=== PATIENT | male | born 1960 | race Two or more races ===

== ENCOUNTER 2019-05-17 05:38 | Emergency (ER) | payer BC ==
[~2019-05-17] VITALS: Ht 170.2 cm; Wt 99.3 kg
[2019-05-17 05:50] VITALS: BP 132/86
--- NOTE | 2019-05-17 05:50 | NUR ---
ED Nurse Note: Patient brought in by ambulance from home d/t inability to urinate, per patient started this morning but has been an ongoing problem. Patient aao x 4 and ambulatory. Patient currently takes Flomax 0.4mg BID. Patient states he has a hx of enlarged prostate and TURP. Patient placed in gown. Patient was able to provide a small sample of urine. No acute distress noted.
--- NOTE | 2019-05-17 05:55 | Emergency Room Report ---
History of Present Illness General Chief Complaint: Male Urogenital Problems Source: Patient (Moisés Ortega MD) Present Illness HPI This is a 59-year-old male with a history of BPH. He is already on Flomax twice a day. He presents with chief complaint of urinary retention. Onset around 5 PM. Very little urination and now very severe pain. Similar symptom in the past. He had to had a dilatation because of severe obstruction a few months ago. He said he had prostate procedure to help him urinate. He had a cough and congestion for the last few days and was taking Phenergan with codeine. It was not working so he stopped it yesterday. He was placed on inhaler instead. It is 10 out of 10. Worse with urge to urinate. (Moisés Ortega MD) Allergies: Coded Allergies: No Known Allergies (Unverified , 05/17/19) Patient History Past Medical History: see triage record, old chart reviewed Past Surgical History: other Pertinent Family History: none Social History: Denies: smoking Immunizations: other Reviewed Nursing Documentation: PMH: Agreed; PSxH: Agreed (Moisés Ortega MD) Nursing Documentation-PMH Hx Hypertension: Yes (Moisés Ortega MD) Review of Systems Eye: Denies: eye pain, blurred vision ENT: Denies: ear pain, nose congestion, throat swelling Respiratory: Denies: cough, shortness of breath Cardiovascular: Denies: chest pain, palpitations Gastrointestinal: Denies: abdominal pain, diarrhea, nausea, vomiting Genitourinary: Reports: pain, retention Musculoskeletal: Denies: back pain, joint pain Skin: Denies: rash Neurological: Denies: headache, numbness Endocrine: Denies: increased thirst, increased urine Hematologic/Lymphatic: Denies: easy bruising All Other Systems: negative except mentioned in HPI (Moisés Ortega MD) Physical Exam Vital Signs Date Time Temp Pulse Resp B/P (MAP) Pulse Ox O2 Delivery O2 Flow Rate FiO2 05/17/19 05:42 97.5 90 160/100 (120) 18 Room Air Vitals with high blood pressure Sp02 EP Interpretation: reviewed, normal General Appearance: well appearing, no apparent distress, alert Head: normocephalic, atraumatic Eyes: bilateral eye PERRL, bilateral eye EOMI ENT: hearing grossly normal, normal pharynx Neck: full range of motion, supple, no meningismus Respiratory: chest non-tender, lungs clear, normal breath sounds Cardiovascular #1: regular rate, rhythm, no murmur Gastrointestinal: normal bowel sounds, non tender, no mass, no organomegaly, no bruit, non-distended, other - Distended bladder Musculoskeletal: back normal, normal range of motion, gait/station normal Psychiatric: mood/affect normal (Moisés Ortega MD) Medical Decision Making Diagnostic Impression: Primary Impression: Acute urinary retention Additional Impressions: Urethral stricture Qualified Codes: N35.911 - Unspecified urethral stricture, male, meatal UTI (urinary tract infection) Qualified Codes: N30.00 - Acute cystitis without hematuria ER Course Patient with acute urinary retention. Nursing staff unable to pass the Britt. I tried and he has severe almost pleat occlusion of the urethra at the meatus. He says is the same problem he had at [facility] last year. He had to be dilated and a catheter placed. He was able to urinate a small amount here. Urine may show small amount of infection. We will put him on antibiotics. I paged the urologist houseperson Dr. Tomlinson to evaluate the patient. (Moisés Ortega MD) ER Course Patient endorsed to me by Dr. Ortega with history of urinary retention after urethral stricture. See Dr. Ortega's note for full HPI. patient was seen by Dr. Tomlinson who placed a Britt catheter. Patient was given pain medications. Dr. Tomlinson agreed to have the patient seen in follow-up. At the time of discharge patient was awake alert oriented x3. He was ambulatory without assistance. Patient is given prescription for oral antibiotics and advised to follow-up with Dr. Tomlinson for recheck. Patient is advised to return if any worsening condition or if any changes in status that are concerning. This report is dictated with [employer] tug hand software which may occasionally lead to discrepancies related to use of this software. Labs Test 05/17/19 05:50 Urine Color Pale yellow Urine Appearance Clear Urine pH 6 (4.5-8.0) Urine Specific [place] 1.015 (1.005-1.035) Urine Protein 2+ (NEGATIVE) Urine Glucose (UA) Negative (NEGATIVE) Urine Ketones Negative (NEGATIVE) Urine Blood 4+ (NEGATIVE) Urine Nitrite Negative (NEGATIVE) Urine Bilirubin Negative (NEGATIVE) Urine Urobilinogen Normal MG/DL (0.0-1.0) Urine Leukocyte Esterase 2+ (NEGATIVE) Urine RBC 40-60 /HPF (0 - 0) Urine WBC 10-15 /HPF (0 - 0) Urine Squamous Epithelial Cells None /LPF (NONE/OCC) Urine Bacteria Few /HPF (NONE) (Miguel Bergeron MD) Last Vital Signs Date Time Temp Pulse Resp B/P (MAP) Pulse Ox O2 Delivery O2 Flow Rate FiO2 05/17/19 05:42 97.5 90 160/100 (120) 18 Room Air Status: improved (Moisés Ortega MD) Status: improved (Miguel Bergeron MD) Disposition: HOME, SELF-CARE Condition: Stable Scripts Hydrocodone Bit/Acetaminophen 5-325* (NORCO 5-325*) 1 Each Tablet 1 TAB ORAL Q6H PRN for For Pain, #10 TAB 0 Refills Prov: Miguel Bergeron MD 05/17/19 Cephalexin* (KEFLEX*) 500 Mg Capsule 500 MG ORAL EVERY 6 HOURS, #28 CAP Prov: Miguel Bergeron MD 05/17/19 Moisés Ortega MD May 17, 2019 05:55 Miguel Bergeron MD May 17, 2019 07:20
[2019-05-17 05:58] LABS: APPEARANCE,URINE CLEAR; BILIRUBIN, URINE NEGATIVE (NEGATIVE); COLOR,URINE PALE YELLOW; GLUCOSE, URINE (UA) NEGATIVE (NEGATIVE); KETONES,URINE NEGATIVE (NEGATIVE); NITRITE,URINE NEGATIVE (NEGATIVE); PH,URINE 6 (4.5-8.0); PROTEIN,URINE 2+ (NEGATIVE); UROBILINOGEN,URINE NORMAL MG/DL (0.0-1.0)
--- NOTE | 2019-05-17 06:00 | NUR ---
ED Nurse Note: Attempted to insert coude 16F urinary cath per ERMD order, unable to advance through urethral opening. ERMD aware.
[2019-05-17 06:06] LABS: LEUKOCYTE ESTERASE ,URINE 2+ (NEGATIVE)
[2019-05-17] MEDS ORDERED: cefTRIAXone 1 GM in NS 55 ML IVPB ONE (06:30)
[2019-05-17] MEDS ORDERED: LORazepam Inj 2mg/ml 1ml IV ONE (06:30)
[2019-05-17] MEDS ORDERED: Morphine Sulfate 2mg/ml Inj(IV/IM USE ONLY) IVP ONE ×2 (07:00→07:15)
--- NOTE | 2019-05-17 07:07 | NUR ---
ED Nurse Note: Urologist and ERMD at bedside.
--- NOTE | 2019-05-17 07:21 | NUR ---
HAND-OFF: Report given to ED Lu.
[2019-05-17] MEDS ORDERED: CEPHALEXIN500 MG ORAL (07:22)
[2019-05-17] MEDS ORDERED: NORCO 5-325 TA1 EACH ORAL (07:23)
[2019-05-17 07:24] VITALS: BP 127/81
[2019-05-17 07:49] VITALS: BP 140/82
--- NOTE | 2019-05-17 07:50 | NUR ---
ER DISCHARGE NOTE: Patient is cleared to be discharged per ERMD, pt is aox4, on room air, with stable vital signs. pt was given dc and prescription instructions, pt was able to verbalize understanding, pt id band and iv site removed without complications. pt is able to ambulate with steady gait. pt took all belongings.
--- NOTE | 2019-05-17 18:45 | Consultation ---
DATE OF CONSULTATION: 05/17/2019 REASON FOR CONSULTATION: 1. Acute urinary retention. 2. Meatal stenosis. HISTORY OF PRESENT ILLNESS: The patient is a very pleasant gentleman who had recently TURP and had two episodes of urinary retention with urethral meatal stricture, came to the emergency room with suprapubic distention, pain, and inability to void. PAST MEDICAL HISTORY: Significant for previous TURPs. REVIEW OF SYMPTOMS: The patient is extremely uncomfortable in bed with distended bladder and inability to void. PHYSICAL EXAMINATION: VITAL SIGNS: He is afebrile. Vital signs are stable. NEUROLOGICAL: Neurologically intact LUNGS: Clear to auscultation. CARDIOVASCULAR: Regular rate and rhythm. ABDOMEN: Soft, but distended with severe suprapubic tenderness. GENITOURINARY: Scrotal exam and penile exam is normal. PROCEDURE: Urethra was evaluated. He has severe meatal stenosis. Using Momo sounds, urethra was dilated to 20-Maldivian and a 16-Maldivian coude Britt catheter was placed. Approximately liter of urine was expressed, clear yellow. No evidence of hematuria. Britt was left indwelling. The patient was given recommendations to see me in the office for further management or to see his urologist on records to address the issue of meatal stricture and to give him treatment in followup to prevent retention. I also recommended sent him home with a Britt catheter due to severe structural dilation. Tutu Tomlinson M.D. DR: Nisha JOB#: [id number] CC:
== END 2019-05-17 07:50 | disposition home or self-care (01) ==
LOC: EDBD 05:38 → EMR 06:23
DX: R33.9 Retention of urine, unspecified (principal); N35.911 Unspecified urethral stricture, male, meatal; N30.00 Acute cystitis without hematuria; I10 Essential (primary) hypertension; N35.919 Unspecified urethral stricture, male, unspecified site
CPT/HCPCS: 51702; 81003; 87086; 96365; 96375; 99284; J0696; J2270

== ENCOUNTER 2019-09-19 08:26 | Inpatient (IN) | payer BC ==
[2019-09-19] VITALS (15 sets, daily range): BP systolic 101–144; BP diastolic 61–90
[~2019-09-19] VITALS: Ht 172.7 cm; Wt 100.7 kg
[~2019-09-19 08:26] MED LIST: CEPHALEXIN500 MG ORAL; NORCO 5-325 TA1 EACH ORAL; ceFAZolin sod 1 GM in NS 55 ML IVPB ONE
[2019-09-19] MEDS ORDERED: LR 1000ml 1,000 ML IVLG SCH (08:58)
--- NOTE | 2019-09-19 08:59 | Anethesia Preoperative Eval ---
Anesthesia Pre-op PMH/ROS General Date of Evaluation: Sep 19, 2019 Time of Evaluation: 09:17 Anesthesiologist: Alejandro ASA Score: ASA 3 Mallampati Score Class I : Soft palate, uvula, fauces, pillars visible Class II: Soft palate, uvula, fauces visible Class III: Soft palate, base of uvula visible Class IV: Only hard plate visible Mallampati Classification: Class III Surgeon: Davi Diagnosis: Abd Pain Surgical Procedure: Prostatectomy Anesthesia History: none Family History: no anesthesia problems Allergies: Coded Allergies: No Known Allergies (Unverified , 09/17/19) Medications: see eMAR Patient NPO?: Yes Past Medical History Cardiovascular: Reports: HTN Hematology/Immune: Reports: other - Prostate Other: obesity - BMI 36 Anesthesia Pre-op Phys. Exam Physician Exam BP 157/99, p58, 02=99 Constitutional: NAD Neurologic: CN 2-12 intact Cardiovascular: RRR Respiratory: CTA Gastrointestinal: S/NT/ND Airway Exam Mallampati Score: Class III MO: limited ROM: limited Teeth: missing, intact Anesthesia Pre-op A/P Risk Assessment & Plan Assessment: ASA 3 Plan: GA, SED, GlideScope Status Change Before Surgery: No Pre-Antibiotics Dru Grams Ancef IV Given Within 1 Hr of Incision: Yes Time Given: 09:31 Flash Allen MD Sep 19, 2019 08:59
[2019-09-19] MEDS ORDERED: LR 1000ml ONE (09:00)
[2019-09-19] MEDS ORDERED: DiphenhydrAMINE 50mg/ml Inj IVP PRN (09:00)
[2019-09-19] MEDS ORDERED: Atropine Sulfate 0.4mg/ml inj IVP PRN (09:00)
[2019-09-19] MEDS ORDERED: LORazepam Inj 2mg/ml 1ml IV PRN (09:00)
[2019-09-19] MEDS ORDERED: Midazolam 2mg/2ml Inj IVP PRN (09:00)
[2019-09-19] MEDS ORDERED: oxyCODONE HCL/Acetaminophen 5/325mg ORAL PRN (09:00)
[2019-09-19] MEDS ORDERED: Metoclopramide 10mg/2ml Inj IVP PRN (09:00)
[2019-09-19] MEDS ORDERED: HYDROcodone/Acetamin 5/325 tab ORAL PRN (09:00)
[2019-09-19] MEDS ORDERED: Acetaminophen (Non formulary) 100 ML IV ONE (09:00)
[2019-09-19] MEDS ORDERED: Rocuronium Bromide 100mg/10ml Inj IV ONE (09:00)
[2019-09-19] MEDS ORDERED: fentaNYL 100 mcg/2 mL IV PRN (09:00)
[2019-09-19] MEDS ORDERED: Hydromorphone 0.5mg/0.5ml inj IVP PRN (09:00)
[2019-09-19] MEDS ORDERED: Labetalol 5mg/ml 20ml vial IV PRN (09:00)
[2019-09-19] MEDS ORDERED: Meperidine 25mg/0.5ml Inj (FOR RIGORS ONLY) IV PRN (09:00)
[2019-09-19] MEDS ORDERED: Sterile Water Irrig 1000ml IRRIG ONE (09:00)
[2019-09-19] MEDS ORDERED: HYDROcodone/Acetamin 7.5/325 tab ORAL PRN (09:00)
[2019-09-19] MEDS ORDERED: Ketorolac 30mg Inj IV PRN ×2 (09:00)
[2019-09-19] MEDS ORDERED: Lidocaine 1% MPF 10mg/ml 5ml ONE (09:13)
[2019-09-19] MEDS ORDERED: Sodium Chloride 10ml vial INJ ONE (09:13)
[2019-09-19] MEDS ORDERED: amlodipine PO (09:17)
--- NOTE | 2019-09-19 09:17 | Pre-Procedure Note/Attestation ---
Pre-Procedure Note/Attestation Complete Prior to Procedure Planned Procedure: not applicable Procedure Narrative: TURP Indications for Procedure Pre-Operative Diagnosis: BPH Attestation I attest that I discussed the nature of the procedure; its benefits; risks and complications; and alternatives (and the risks and benefits of such alternatives ), prior to the procedure, with the patient (or the patient's legal lead generation representative). I attest that, if there was a reasonable possibility of needing a blood transfusion, the patient (or the patient's legal lead generation representative) was given the [facility] standardized written summary, pursuant to the [place] Blood Safety Act ([place] Health and Safety Code # 1645, as amended). I attest that I re-evaluated the patient just prior to the surgery and that there has been no change in the patient's H&P, except as documented below: Tutu Tomlinson MD Sep 19, 2019 09:17
[2019-09-19] MEDS ORDERED: METOPROLOL SUCC50 MG ORAL (09:18)
[2019-09-19] MEDS ORDERED: fentaNYL 100 mcg/2 mL IV ONE (09:19)
[2019-09-19] MEDS ORDERED: NS Irrig 4000ml IRRIG ONE ×8 (09:51→10:15)
--- NOTE | 2019-09-19 09:53 | Immediate Post-Op Evaluation ---
Immediate Post-Op Evalulation Immediate Post-Op Evalulation Procedure: Prostatectomy Date of Evaluation: Sep 19, 2019 Time of Evaluation: 10:42 IV Fluids: 300 LR Blood Products: 0 Urinary Output: 25 Blood Pressure Systolic: 0 Blood Pressure Diastolic: 101 Pulse Rate: 59 Respiratory Rate: 54 O2 Sat by Pulse Oximetry: 96 Temperature (Fahrenheit): 97 Pain Score (1-10): 2 Nausea: No Vomiting: No Complications 0 Patient Status: awake, reacts, patent, extubated, none Hydration Status: adequate Dru Grams Ancef IV Given Within 1 Hr of Incision: Yes Time Given: 09:31 Flash Allen MD Sep 19, 2019 09:53
[2019-09-19] MEDS ORDERED: Glycopyrrolate 0.2mg/ml 1ml Vial ONE (10:11)
[2019-09-19] MEDS ORDERED: Neostigmine 1mg/ml 10ml Inj ONE (10:11)
--- NOTE | 2019-09-19 10:41 | Brief Operative Note ---
Immediate Post Operative Note Operative Note Pre-op Diagnosis: BPH Procedure: TURP Post-op Diagnosis: BPH Post-op Diagnosis: same as pre-op Surgeon: Kade Tomlinson Anesthesia: general Specimen: yes Complications: none Condition: stable Fluids: 1000 Estimated Blood Loss: minimal Implant(s) used?: No Tutu Tomlinson MD Sep 19, 2019 10:41
[2019-09-19 11:50] LABS: HEMATOCRIT 42.9 % (42.0-52.0); LYMPHOCYTES % (AUTO) 13.8 % (20.0-45.0); MEAN CORPUSCULAR VOLUME 84 FL (80-99); MONOCYTES % (AUTO) 3.2 % (1.0-10.0); PLATELET COUNT 230 K/UL (150-450); RED BLOOD COUNT 5.11 M/UL (4.70-6.10); WHITE BLOOD COUNT 5.5 K/UL (4.8-10.8)
[2019-09-19 12:05] LABS: ANION GAP 7 mmol/L (5-15); BLOOD UREA NITROGEN 17 mg/dL (7-18); CALCIUM 7.7 MG/DL (8.5-10.1); CARBON DIOXIDE 28 MMOL/L (21-32); CHLORIDE 109 MMOL/L (98-107); CREATININE 1.3 MG/DL (0.55-1.30); POTASSIUM 4.1 MMOL/L (3.5-5.1); SODIUM 144 MMOL/L (136-145)
[2019-09-19] MEDS: HYDROcodone/Acetamin 5/325 tab ORAL PRN ×2 (15:09→19:32)
[2019-09-19] MEDS: D5 1/2NS w/KCl 20mEq 1,000 ML IV SCH (15:10)
[2019-09-19] MEDS: ceFAZolin 2gm/50ml Premix 50 ML IV SCH (17:40)
[2019-09-19] MEDS: Docusate 100mg cap ORAL SCH (17:42)
[2019-09-20] MEDS: D5 1/2NS w/KCl 20mEq 1,000 ML IV SCH (01:00)
[2019-09-20] MEDS: ceFAZolin 2gm/50ml Premix 50 ML IV SCH (01:08)
[2019-09-20] MEDS: HYDROmorphone 1mg/ml Carpuject IVP PRN ×2 (01:56→18:13)
--- NOTE | 2019-09-20 02:15 | Operative Note - Dictated ---
DATE OF OPERATION: 09/19/2019 SURGEON: Tutu Tomlinson MD PREOPERATIVE DIAGNOSES: BPH, urinary retention. POSTOPERATIVE DIAGNOSES: BPH, urinary retention. OPERATION: Transurethral resection of the prostate. ANESTHESIA: General. FINDINGS: Enlarged prostate. INDICATIONS FOR SURGERY: The patient had previous TURP prostate with partial resection. However, he still had severe obstructing voiding symptoms, requiring medications. He also developed distal urethral stricture, which was dilated several times. Treatment options were explained to him in great length including all potential complications. He understands the nature of the procedure and signed the consent. DESCRIPTION OF PROCEDURE: Brought to the operating room, placed in lithotomy position, prepped and draped in standard fashion. Distal urethra was dilated with Momo sounds. After that, resectoscope was introduced. Severe enlargement of right lateral lobe was noticed and was resected with Endoloop all the way down to the capsule. The prostate was fulgurated and all the chips were evacuated for pathological examination. Bladder neck was wide open. 24, three-way Britt catheter was placed and left indwelling. Sponge count, instrument count was correct. Patient tolerated procedure well. No evidence of complications. Tutu Tomlinson M.D. DR: RUIZ JOB#: [id number] CC:
[2019-09-20 04:00] VITALS: BP 120/71
[2019-09-20 06:40] LABS: ANION GAP 9 mmol/L (5-15); BLOOD UREA NITROGEN 15 mg/dL (7-18); CALCIUM 8.2 MG/DL (8.5-10.1); CARBON DIOXIDE 25 MMOL/L (21-32); CHLORIDE 105 MMOL/L (98-107); CREATININE 1.2 MG/DL (0.55-1.30); HEMATOCRIT 41.4 % (42.0-52.0); MEAN CORPUSCULAR VOLUME 84 FL (80-99); PLATELET COUNT 271 K/UL (150-450); POTASSIUM 3.8 MMOL/L (3.5-5.1); RED BLOOD COUNT 4.96 M/UL (4.70-6.10); RED CELL DISTRIBUTION WIDTH 15.2 % (11.6-14.8); SODIUM 139 MMOL/L (136-145); WHITE BLOOD COUNT 18.8 K/UL (4.8-10.8)
[2019-09-20 08:51] VITALS: BP 138/83
[2019-09-20] MEDS: Docusate 100mg cap ORAL SCH ×2 (09:00→17:49)
--- NOTE | 2019-09-20 09:57 | CDS Physician Query ---
Clarification is required for compliance, coding accuracy, and to reflect severity of illness for this patient. Dear Dr. Davi Cam M.D Date: 09/20/2019 The findings below have been reported on this patient's medical record: Procedure: Prostatectomy Lab Value/Radiographic finding of: LAB (09/18): Chem; Calcium Level 7.7 [8.5-10.1] Please Clarify the diagnosis associated with this finding: [ ] Hypocalcemia [ ] Finding is no significant [ ] Other: Diagnosis: Present on Admission: [] Yes [] No [] Clinically Undetermined Physician signature Date Please also document in your Progress Notes and/or Discharge Summary and indicate if the condition was present on admission. ISRAELD
[2019-09-20] MEDS ORDERED: NORVASC5 MG ORAL (10:38)
[2019-09-20] MEDS ORDERED: LORazepam 0.5mg tab ORAL PRN (10:45)
[2019-09-20] MEDS ORDERED: FLOMAX0.4 MG ORAL (10:48)
[2019-09-20 12:00] VITALS: BP 145/90
--- NOTE | 2019-09-20 12:15 | Consultation ---
DATE OF CONSULTATION: 09/20/2019 INTERNAL MEDICINE CONSULTATION CONSULTING PHYSICIAN: Skyler Devries MD REFERRING PHYSICIAN: Tutu Tomlinson MD REASON FOR CONSULTATION: Internal medicine postoperative management after urologic surgery. HISTORY OF PRESENT ILLNESS: This is a 59-year-old male who has undergone TURP by Dr. Tutu Tomlinson yesterday. The patient has had previous TURP as well. However, he has developed distal urethral stricture, which has been dilated several times. The patient underwent surgery and a three-way Britt has also been placed. At this time, the patient states he is feeling well. PAST MEDICAL HISTORY: Notable for previous prostatectomy, hypertension, BPH, obesity, history of anxiety. ALLERGIES: None to medications; however, he reports on previous surgeries he got agitated after surgery due to anesthesia. HOME MEDICATIONS: Include metoprolol, Norvasc, and Flomax. REVIEW OF SYSTEMS: He denies any headaches, hematemesis, melena, hematochezia. PHYSICAL EXAMINATION: GENERAL: Reveals a 59-year-old male. VITAL SIGNS: Blood pressure 130/80, heart rate 68, respirations . He is afebrile. HEENT: Unremarkable. LUNGS: Clear breath sounds. ABDOMEN: Soft. EXTREMITIES: There is no edema. NEUROLOGIC: Nonfocal. LABORATORY DATA: Lab testing shows white count 18,000, otherwise normal CBC and BMP. IMPRESSION: 1. Hypertension. 2. Status post TURP. 3. Anxiety. DISCUSSION: Admit to the hospital. Postoperative care, IV fluids. Check labs in a.m. We will resume oral antihypertensives. Start clear liquid diet. We will order Ativan. We will follow carefully. Skyler Devries M.D. DR: JAY JOB#: [id number] CC:
--- NOTE | 2019-09-20 14:44 | 48 Hour Post Anesthesia Eval ---
Post Anesthesia Evaluation Procedure: Prostatectomy Date of Evaluation: Sep 20, 2019 Time of Evaluation: 14:42 Blood Pressure Systolic: 139 0: 78 Pulse Rate: 84 Respiratory Rate: 20 Temperature (Fahrenheit): 97.6 O2 Sat by Pulse Oximetry: 98 Airway: patent Nausea: No Vomiting: No Pain Intensity: 2 Hydration Status: adequate Cardiopulmonary Status: stable Mental Status/LOC: patient returned to baseline Follow-up Care/Observations: n/a Post-Anesthesia Complications: none Follow-up care needed: N/A Bolivar Santiago MD Sep 20, 2019 14:44
[2019-09-20 15:43] VITALS: BP 143/81
[2019-09-20 20:00] VITALS: BP 135/89
[2019-09-20] MEDS ORDERED: Tamsulosin 0.4mg cap ORAL SCH (21:00)
[2019-09-21] VITALS: BP 121/70
[2019-09-21 04:00] VITALS: BP 120/84
[2019-09-21 06:04] LABS: BASOPHILS % (AUTO) 0.8 % (0.0-2.0); EOSINOPHILS % (AUTO) 1.7 % (0.0-3.0); HEMOGLOBIN 12.8 G/DL (14.2-18.0); LYMPHOCYTES % (AUTO) 19.1 % (20.0-45.0); MEAN CORPUSCULAR VOLUME 85 FL (80-99); MONOCYTES % (AUTO) 8.3 % (1.0-10.0); NEUTROPHILS % (AUTO) 70.1 % (45.0-75.0); PLATELET COUNT 218 K/UL (150-450); RED BLOOD COUNT 4.96 M/UL (4.70-6.10); RED CELL DISTRIBUTION WIDTH 15.7 % (11.6-14.8); WHITE BLOOD COUNT 9.3 K/UL (4.8-10.8)
[2019-09-21 06:17] LABS: ANION GAP 8 mmol/L (5-15); BLOOD UREA NITROGEN 16 mg/dL (7-18); CALCIUM 7.9 MG/DL (8.5-10.1); CARBON DIOXIDE 27 MMOL/L (21-32); CHLORIDE 107 MMOL/L (98-107); CREATININE 1.2 MG/DL (0.55-1.30); POTASSIUM 3.7 MMOL/L (3.5-5.1); SODIUM 142 MMOL/L (136-145)
--- NOTE | 2019-09-21 07:20 | Pulmonology Progress Note ---
Subjective Interval Events: Feeling better Constitutional: Reports: no symptoms HEENT: Repors: no symptoms Respiratory: Reports: no symptoms Cardiovascular: Reports: no symptoms Gastrointestinal/Abdominal: Reports: no symptoms Genitourinary: Reports: no symptoms Allergies: Coded Allergies: No Known Allergies (Unverified , 09/17/19) Objective Last 24 Hour Vital Signs Date Time Temp Pulse Resp B/P (MAP) Pulse Ox O2 Delivery O2 Flow Rate FiO2 09/21/19 04:00 98.7 66 20 120/84 (96) 99 09/21/19 00:00 98.1 59 20 121/70 (87) 99 09/20/19 21:00 Room Air 09/20/19 20:00 97.3 65 20 135/89 (104) 99 09/20/19 15:43 98.8 65 18 143/81 (101) 97 09/20/19 14:44 84 20 98 09/20/19 12:00 98.0 68 16 145/90 (108) 97 09/20/19 09:00 Room Air 09/20/19 08:51 97.3 68 16 138/83 (101) 97 Intake and Output 09/20/19 09/21/19 19:00 07:00 Intake Total 2200 ml Output Total 2500 ml 1875 ml Balance -300 ml -1875 ml Intake Oral 2200 ml Output Urine Total 2500 ml 1875 ml General Appearance: no acute distress Respiratory: chest wall non-tender Cardiovascular: normal peripheral pulses Abdomen: normal bowel sounds Laboratory Tests 09/21/19 04:50: White Blood Count 9.3#, Red Blood Count 4.96, Hemoglobin 12.8L, Hematocrit 42.0 , Mean Corpuscular Volume 85, Mean Corpuscular Hemoglobin 25.8L, Mean Corpuscular Hemoglobin Concent 30.4L, Red Cell Distribution Width 15.7H, Platelet Count 218, Mean Platelet Volume 8.5, Neutrophils (%) (Auto) 70.1, Lymphocytes (%) (Auto) 19.1L, Monocytes (%) (Auto) 8.3, Eosinophils (%) (Auto) 1.7, Basophils (%) (Auto) 0.8, Sodium Level 142, Potassium Level 3.7, Chloride Level 107, Carbon Dioxide Level 27, Anion Gap 8, Blood Urea Nitrogen 16, Creatinine 1.2, Estimat Glomerular Filtration Rate > 60, Glucose Level 92, Calcium Level 7.9L Current Medications Medications (Trade) Dose Ordered Sig/Lita Route PRN Reason Start Time Stop Time Status Last Admin Dose Admin Acetaminophen (Tylenol) 650 mg Q4H PRN ORAL FEVER 09/19/19 10:45 10/19/19 10:44 Acetaminophen (Tylenol) 650 mg Q6H PRN ORAL Mild Pain (Pain Scale 1-3) 09/19/19 10:45 10/19/19 10:44 Acetaminophen/ Hydrocodone Bitart (Prosperity 5/325) 1 tab Q4H PRN ORAL Moderate Pain (Pain Scale 4-6) 09/19/19 10:45 09/26/19 10:44 09/19/19 19:32 Amlodipine Besylate (Norvasc) 5 mg DAILY ORAL 09/21/19 09:00 10/21/19 08:59 Docusate Sodium (Colace) 100 mg TWICE A DAY ORAL 09/19/19 18:00 10/19/19 17:59 09/20/19 17:49 Hydromorphone HCl (Dilaudid) 1 mg Q3H PRN IVP pain score 4-6 09/19/19 10:45 09/26/19 10:44 09/20/19 18:13 Lorazepam (Ativan) 0.5 mg Q6H PRN ORAL For Anxiety 09/20/19 10:45 09/27/19 10:44 09/20/19 12:25 Metoprolol Succinate (Toprol XL) 25 mg DAILY ORAL 09/21/19 09:00 12/20/19 08:59 Ondansetron HCl (Zofran) 4 mg Q6H PRN IVP Nausea & Vomiting 09/19/19 10:45 10/19/19 10:44 Tamsulosin HCl (Flomax) 0.4 mg BEDTIME ORAL 09/20/19 21:00 10/20/19 20:59 09/20/19 20:33 Temazepam (RestoriL) 7.5 mg DAILYPRN PRN ORAL Insomnia 09/19/19 10:45 09/26/19 10:44 09/20/19 22:03 Assessment/Plan Assessment/Plan IMPRESSION: 1. Hypertension. 2. Status post TURP. 3. Anxiety. DISCUSSION: Three way bladder irrigation; now stopped Britt dc Labs reviewed; normal Continue postoperative care, IV fluids. Continue oral antihypertensives. On regular diet I will follow carefully. Dc home if OK with Dr. Tomlinson Vinnie Glover Omar Syed MD Sep 21, 2019 07:20
[2019-09-21 08:00] VITALS: BP 138/78
[2019-09-21] MEDS ORDERED: Metoprolol Succinate XL 25mg tab ORAL SCH (09:00)
[2019-09-21] MEDS: Docusate 100mg cap ORAL SCH (09:12)
[2019-09-21] MEDS ORDERED: NORCO 5-325 TA1 EAC1 ORAL (11:09)
[2019-09-21] MEDS ORDERED: FLOMAX0.4 MG ORAL (11:09)
[2019-09-21] MEDS ORDERED: COLACE100 MG ORAL (11:09)
[2019-09-21] MEDS ORDERED: NORVASC5 MG ORAL (11:09)
[2019-09-21] MEDS ORDERED: Metoprolol Succinate XL ORAL (11:09)
[2019-09-21 12:00] VITALS: BP 134/83
[2019-09-21] MEDS ORDERED: Tubing IV Secondary IV ONE (13:07)
--- NOTE | 2019-09-23 16:00 | Discharge Summary ---
Discharge Summary Discharge Summary _ DATE OF ADMISSION: 09/19/2019 DATE OF DISCHARGE: 09/21/2019 DISCHARGED BY: Dr. Justin Devries SURGEON: Dr. Tutu Tomlinson BRIEF HOSPITAL COURSE: Patient is a 59-year-old male with history of BPH and urinary retention, who had undergone previous TURP prostate with partial resection. However, he still had severe obstructive voiding symptoms requiring medications. He developed distal urethral stricture which was dilated several times. Treatment options were explained. Patient was then admitted for TURP. He underwent procedure well. Post operative, he had a three-way Britt catheter connected to CBI. He was given pain management. Postoperatively, he was continued on Flomax. He was given metoprolol and amlodipine for blood pressure control. He was started on clear liquid diet. Advanced as tolerated. Leukocytosis down trended. Patient was afebrile. He was tolerating diet well. He had good pain control. CBI was discontinued. Britt catheter removed. Patient was able to void freely. He was then cleared for discharge home. FINAL DIAGNOSES: Status post TURP Hypertension Anxiety DISPOSITION: Patient was discharged home. DISCHARGE MEDICATIONS: Refer to Discharge Medication List. DISCHARGE INSTRUCTIONS: Follow-up in a week. I have been assigned to complete a discharge summary on this account, I was not involved with the patient's management.--QUINTON Paniagua Jacqueline Robles NP Sep 23, 2019 16:00
== END 2019-09-21 12:07 | disposition home or self-care (01) | DRG 714 ==
LOC: SUR 08:26 → EDSTATUS 11:30 → EDBEDREQ 13:19 → 3E 13:23
PROC: 0VT08ZZ Resection of Prostate, Via Natural or Artificial Opening Endoscopic (ICD-10-PCS; principal; 2019-09-19 09:30)
DX: N40.1 Benign prostatic hyperplasia with lower urinary tract symptoms (principal); E83.51 Hypocalcemia; R33.8 Other retention of urine; I10 Essential (primary) hypertension; F41.9 Anxiety disorder, unspecified
CPT/HCPCS: 36415; 80048; 85007; 85025; 94003; 94150; J2405; J2710

== ENCOUNTER 2019-09-26 16:30 | Emergency (ER) | payer BC ==
[~2019-09-26] VITALS: Ht 172.7 cm; Wt 101.2 kg
[~2019-09-26 16:30] MED LIST changes: +COLACE100 MG ORAL; +FLOMAX0.4 MG ORAL; +METOPROLOL SUCC50 MG ORAL; +Metoprolol Succinate XL ORAL; +NORCO 5-325 TA1 EAC1 ORAL; +NORVASC5 MG ORAL; +amlodipine PO; -ceFAZolin sod 1 GM in NS 55 ML IVPB ONE
--- NOTE | 2019-09-26 16:48 | NUR ---
ED Nurse Note: Pt walked in from home c/o dark red blood and blood clots in his urine since last night. Pt reports receiving prostate surgery @ [facility] last week with Dr. Tomlinson. Respirations even adn unlabored on room air. Vitals stable as documented. urine collected and sent to lab
[2019-09-26 16:50] VITALS: BP 151/94
[2019-09-26 16:59] LABS: APPEARANCE,URINE TURBID; BILIRUBIN, URINE NEGATIVE (NEGATIVE); COLOR,URINE RED; GLUCOSE, URINE (UA) NEGATIVE (NEGATIVE); KETONES,URINE NEGATIVE (NEGATIVE); LEUKOCYTE ESTERASE ,URINE 3+ (NEGATIVE); NITRITE,URINE NEGATIVE (NEGATIVE); PH,URINE 6.5 (4.5-8.0); PROTEIN,URINE 4+ (NEGATIVE); UROBILINOGEN,URINE NORMAL MG/DL (0.0-1.0)
--- NOTE | 2019-09-26 17:28 | NUR ---
ED Nurse Note: bladder scanner shows 115 ml. ED MD aware. Pt voided again without complications in the bathroom
[2019-09-26 17:35] VITALS: BP 149/89
--- NOTE | 2019-09-26 17:35 | NUR ---
ER DISCHARGE NOTE: Patient is cleared to be discharged per ERMD, pt is aox4, on room air, with stable vital signs. pt was given dc instructions, pt was able to verbalize understanding, pt id band removed. pt is able to ambulate with steady gait. pt took all belongings.
--- NOTE | 2019-09-26 18:55 | Emergency Room Report ---
History of Present Illness General Chief Complaint: Male Urogenital Problems Source: Patient Present Illness HPI 59-year-old male presents for hematuria. Started yesterday. States that he had a TURP procedure last week here at [facility] [place]. States that he had follow-up yesterday and everything was fine. States he feels like he is having a hard time voiding. Denies fevers or chills. No other aggravating relieving factors. Denies any other associated symptoms Allergies: Coded Allergies: No Known Allergies (Unverified , 09/17/19) COVID-19 Screening Contact w/high risk pt: No Recent Travel to affected area: No Experienced COVID-19 symptoms?: No COVID-19 Testing performed SPINNERET CLEANER: No Patient History Past Medical History: none Past Surgical History: none Pertinent Family History: none Social History: Denies: smoking, alcohol use, drug use Immunizations: UTD Reviewed Nursing Documentation: PMH: Agreed; PSxH: Agreed Nursing Documentation-PMH Past Medical History: No History, Except For Hx Cardiac Problems: Yes - prostate surgery Hx Hypertension: Yes Hx Cancer: No Hx Gastrointestinal Problems: Yes Hx Neurological Problems: No Review of Systems All Other Systems: negative except mentioned in HPI Physical Exam Vital Signs Date Time Temp Pulse Resp B/P (MAP) Pulse Ox O2 Delivery O2 Flow Rate FiO2 09/26/19 16:35 98.4 89 17 156/98 (117) 98 Room Air Sp02 EP Interpretation: reviewed, normal General Appearance: no apparent distress, alert, GCS 15, non-toxic Head: normocephalic, atraumatic Eyes: bilateral eye normal inspection, bilateral eye PERRL ENT: hearing grossly normal, normal pharynx, no angioedema, normal voice Neck: full range of motion, supple/symm/no masses Respiratory: chest non-tender, lungs clear, normal breath sounds, speaking full sentences Cardiovascular #1: regular rate, rhythm, no edema Cardiovascular #2: 2+ carotid (R), 2+ carotid (L), 2+ radial (R), 2+ radial (L) , 2+ dorsalis pedis (R), 2+ dorsalis pedis (L) Gastrointestinal: normal bowel sounds, non tender, soft, non-distended, no guarding, no rebound Rectal: deferred Genitourinary: normal inspection, no CVA tenderness Musculoskeletal: back normal, normal range of motion, gait/station normal, non- tender Neurologic: alert, motor strength/tone normal, oriented x3, sensory intact, responsive, speech normal Psychiatric: judgement/insight normal, memory normal, mood/affect normal, no suicidal/homicidal ideation Reflexes: 3+ bicep (R), 3+ bicep (L), 3+ tricep (R), 3+ tricep (L), 3+ knee (R) , 3+ knee (L) Lymphatic: no adenopathy Medical Decision Making Diagnostic Impression: Primary Impression: Hematuria Qualified Codes: R31.9 - Hematuria, unspecified Additional Impression: S/P TURP ER Course Hospital Course 59-year-old male presents with hematuria. Status post TURP Differential diagnoses include: UTI, cystitis, pyelonephritis Clinical course Patient placed on stretcher. After initial history and physical I ordered UA UA + bacteria + Blood bladder scanner performed showed about 115 mL's. Discussed with urologist Dr. Tomlinson. Does not recommend any bladder irrigation. Patient is voiding without difficulty without any signs of retention. Patient is currently already on antibiotics. Recommends drinking plenty of water and he will see patient in his office tomorrow Discussed these findings with patient. Reassurance given. Recommend that he continues antibiotics. Drink plenty of water. We will see in his office in the morning. Patient agrees with plan Diagnosis - hematuria, s/p TURP Stable and discharged home. Continue Macrobid as directed. Drink plenty of fluids. Instructed to followup with urology. Return to ED if symptoms recur or worsen Labs Test 09/26/19 16:44 Urine Color Red Urine Appearance Turbid Urine pH 6.5 (4.5-8.0) Urine Specific [place] 1.015 (1.005-1.035) Urine Protein 4+ (NEGATIVE) Urine Glucose (UA) Negative (NEGATIVE) Urine Ketones Negative (NEGATIVE) Urine Blood 5+ (NEGATIVE) Urine Nitrite Negative (NEGATIVE) Urine Bilirubin Negative (NEGATIVE) Urine Urobilinogen Normal MG/DL (0.0-1.0) Urine Leukocyte Esterase 3+ (NEGATIVE) Urine RBC Tntc /HPF (0 - 0) Urine WBC 10-15 /HPF (0 - 0) Urine Squamous Epithelial Cells Occasional /LPF Urine Bacteria Moderate /HPF (NONE) Last Vital Signs Date Time Temp Pulse Resp B/P (MAP) Pulse Ox O2 Delivery O2 Flow Rate FiO2 09/26/19 17:35 98.1 79 20 149/89 99 Room Air Status: improved Disposition: HOME, SELF-CARE Condition: Stable Patient Instructions: Transurethral Resection of the Prostate, Care After Additional Instructions: drink plenty of water. continue antibiotics as prescribed. see Dr Tomlinson in his office tomorrow 09/26 at 10am Samy Lowry MD Sep 26, 2019 18:55
== END 2019-09-26 17:35 | disposition home or self-care (01) ==
LOC: EMR 17:11
DX: R31.9 Hematuria, unspecified (principal); I10 Essential (primary) hypertension; Z98.890 Other specified postprocedural states
CPT/HCPCS: 81003; 87086; 87181; 99283

== ENCOUNTER 2019-10-03 19:49 | Inpatient (IN) | payer BC ==
[~2019-10-03] VITALS: Ht 172.7 cm; Wt 100.7 kg
--- NOTE | 2019-10-03 20:26 | NUR ---
ED Nurse Note: pT AMBULATED TO ED FROM HOME C/O URINATING BLOOD AND PAIN IN HIS BLADDER. PT HAD A PROSTATE SURGERY ON 09/18 WITHOUT COMPLICATIONS, FINISHED ANTIBIOTICS YESTERDAY. VSS, PT IS A&OX4.
[2019-10-03 20:29] VITALS: BP 159/98
[2019-10-03] MEDS ORDERED: Morphine Sulfate 4mg/ml Inj (IV USE ONLY) IVP ONE (20:30)
--- NOTE | 2019-10-03 20:33 | Emergency Room Report ---
History of Present Illness General Chief Complaint: Male Urogenital Problems Source: Patient Present Illness HPI Patient represents with hematuria. He has been passing clots today. Now he cannot urinate at all. Patient had TUR procedure on September 18. He was seen September 25 for hematuria. He was given antibiotics and improved. He did stop the antibiotics yesterday. He was on antibiotics before the September 25 visit. It is unclear what antibiotics he did take and complete. Only a urinalysis was performed. Culture grew out enterococcus faecalis. He denies fevers or chills. He said the hematuria had cleared up and he saw his urologist today. During that visit he started to have some blood in his urine but no clots. Subsequent to that it is been more difficult to urinate. Prior to coming into the emergency department he is unable to pass any urine at all. When initially presented to the emergency department he was complaining about 2/10 pain. Very quickly after he was unable to urinate the pain escalated to 10/10 in his suprapubic area without radiation and constant. Is a pressure and aching and urge to urinate. No fevers, chills, sore throat, chest pain, palpitations, nausea, vomiting, diarrhea, shortness of breath, joint pain, rashes, depression, anxiety, visual changes, dizziness, headache. Allergies: Coded Allergies: No Known Allergies (Unverified , 09/17/19) COVID-19 Screening Contact w/high risk pt: No Recent Travel to affected area: No Experienced COVID-19 symptoms?: No COVID-19 Testing performed GOLF COURSE PATROLLER: No Patient History Past Medical History: see triage record Past Surgical History: other - TUR X 2 Social History: Denies: smoking, alcohol use Social History Narrative From home Reviewed Nursing Documentation: PMH: Agreed; PSxH: Agreed Nursing Documentation-PMH Hx Cardiac Problems: Yes - prostate surgery Hx Hypertension: Yes Hx Cancer: No Hx Gastrointestinal Problems: Yes Hx Neurological Problems: No Review of Systems All Other Systems: negative except mentioned in HPI Physical Exam Vital Signs Date Time Temp Pulse Resp B/P (MAP) Pulse Ox O2 Delivery O2 Flow Rate FiO2 10/03/19 19:53 98.8 90 19 159/98 (118) 97 Room Air Sp02 EP Interpretation: reviewed, normal General Appearance: well appearing, GCS 15, non-toxic, mild distress Head: normocephalic Eyes: bilateral eye normal inspection, bilateral eye PERRL, bilateral eye EOMI ENT: moist mucus membranes Neck: supple Respiratory: lungs clear, normal breath sounds Cardiovascular #1: regular rate, rhythm Cardiovascular #2: 2+ radial (R) Gastrointestinal: normal bowel sounds, tenderness - Suprapubic, mass - Bladder Genitourinary: no CVA tenderness, penis normal Musculoskeletal: back normal, normal range of motion, gait/station normal Neurologic: alert, oriented x3, normal inspection Psychiatric: anxious - Due to pain Skin: no rash, warm/dry Medical Decision Making Diagnostic Impression: Primary Impression: Urinary retention Additional Impressions: Hematuria Qualified Codes: R31.0 - Gross hematuria S/P TURP Constipation Qualified Codes: K59.03 - Drug induced constipation ER Course Patient presents with bladder obstruction after passing clots and transurethral resection of the prostate on September 18. Differential includes clots in the bladder, blood clots in the urethra, postoperative bleeding, urinary tract infection amongst others. An irrigating Britt will be placed. The patient also needs labs done. Also he will receive antiemetic and pain medication. Labs remarkable for normal white count, hemoglobin, renal function. Urinalysis with hematuria and red blood cells. No pyuria. Coagulation studies normal. Still significant pain with bladder irrigation. Patient marked distress requiring multiple doses of analgesics. With bladder irrigation urine pink. Pain is decreased. Contacted who agrees with admission for continued bladder irrigation and evaluation. C/O constipation. Enema ordered. This was not administered in the emergency department. Bladder scan done. This is with the irrigating Britt present. Apparently there are 356 mils of material in the bladder. Consideration for clot retention. Laboratory Tests Test 10/03/19 20:05 10/03/19 20:40 Urine Color Red Urine Appearance Turbid Urine pH 8 (4.5-8.0) Urine Specific [place] 1.015 (1.005-1.035) Urine Protein 4+ (NEGATIVE) H Urine Glucose (UA) Negative (NEGATIVE) Urine Ketones Negative (NEGATIVE) Urine Blood 5+ (NEGATIVE) H Urine Nitrite Negative (NEGATIVE) Urine Bilirubin Negative (NEGATIVE) Urine Urobilinogen Normal MG/DL (0.0-1.0) Urine Leukocyte Esterase Negative (NEGATIVE) Urine RBC Tntc /HPF (0 - 0) H Urine WBC 0-2 /HPF (0 - 0) Urine Squamous Epithelial Cells Occasional /LPF Urine Bacteria Few /HPF (NONE) White Blood Count 9.7 K/UL (4.8-10.8) Red Blood Count 5.31 M/UL (4.70-6.10) Hemoglobin 13.6 G/DL (14.2-18.0) L Hematocrit 42.5 % (42.0-52.0) Mean Corpuscular Volume 80 FL (80-99) Mean Corpuscular Hemoglobin 25.7 PG (27.0-31.0) L Mean Corpuscular Hemoglobin Concent 32.0 G/DL (32.0-36.0) Red Cell Distribution Width 15.0 % (11.6-14.8) H Platelet Count 335 K/UL (150-450) Mean Platelet Volume 8.0 FL (6.5-10.1) Neutrophils (%) (Auto) 62.3 % (45.0-75.0) Lymphocytes (%) (Auto) 19.8 % (20.0-45.0) L Monocytes (%) (Auto) 6.8 % (1.0-10.0) Eosinophils (%) (Auto) 9.8 % (0.0-3.0) H Basophils (%) (Auto) 1.3 % (0.0-2.0) Prothrombin Time 10.7 SEC (9.30-11.50) Prothrombin Time INR 1.0 (0.9-1.1) Activated Partial Thromboplast Time 26 SEC (23-33) Sodium Level 142 MMOL/L (136-145) Potassium Level 3.6 MMOL/L (3.5-5.1) Chloride Level 105 MMOL/L (98-107) Carbon Dioxide Level 26 MMOL/L (21-32) Anion Gap 11 mmol/L (5-15) Blood Urea Nitrogen 15 mg/dL (7-18) Creatinine 1.3 MG/DL (0.55-1.30) Estimated Glomerular Filtration Rate 56.3 mL/min (>60) Glucose Level 137 MG/DL (74-106) H Calcium Level 7.8 MG/DL (8.5-10.1) L Total Bilirubin 0.2 MG/DL (0.2-1.0) Aspartate Amino Transferase (AST) 12 U/L (15-37) L Alanine Aminotransferase (ALT) 19 U/L (12-78) Alkaline Phosphatase 111 U/L (46-116) Total Protein 7.4 G/DL (6.4-8.2) Albumin 3.9 G/DL (3.4-5.0) Globulin 3.5 g/dL Albumin/Globulin Ratio 1.1 (1.0-2.7) Lipase 198 U/L (73-393) Last Vital Signs Date Time Temp Pulse Resp B/P (MAP) Pulse Ox O2 Delivery O2 Flow Rate FiO2 10/04/19 04:00 98.2 72 18 115/65 (82) 96 10/04/19 02:18 Room Air Status: improved Disposition: ADMITTED INPATIENT Condition: Serious Maged Cabello MD Oct 03, 2019 20:33
[2019-10-03 20:49] LABS: APPEARANCE,URINE TURBID; BILIRUBIN, URINE NEGATIVE (NEGATIVE); COLOR,URINE RED; GLUCOSE, URINE (UA) NEGATIVE (NEGATIVE); KETONES,URINE NEGATIVE (NEGATIVE); LEUKOCYTE ESTERASE ,URINE NEGATIVE (NEGATIVE); NITRITE,URINE NEGATIVE (NEGATIVE); PH,URINE 8 (4.5-8.0); PROTEIN,URINE 4+ (NEGATIVE); UROBILINOGEN,URINE NORMAL MG/DL (0.0-1.0)
[2019-10-03 20:53] LABS: BASOPHILS % (AUTO) 1.3 % (0.0-2.0); EOSINOPHILS % (AUTO) 9.8 % (0.0-3.0); HEMATOCRIT 42.5 % (42.0-52.0); HEMOGLOBIN 13.6 G/DL (14.2-18.0); LYMPHOCYTES % (AUTO) 19.8 % (20.0-45.0); MEAN CORPUSCULAR VOLUME 80 FL (80-99); MONOCYTES % (AUTO) 6.8 % (1.0-10.0); NEUTROPHILS % (AUTO) 62.3 % (45.0-75.0); PLATELET COUNT 335 K/UL (150-450); RED BLOOD COUNT 5.31 M/UL (4.70-6.10); WHITE BLOOD COUNT 9.7 K/UL (4.8-10.8)
[2019-10-03 21:00] LABS: ANION GAP 11 mmol/L (5-15); BLOOD UREA NITROGEN 15 mg/dL (7-18); CALCIUM 7.8 MG/DL (8.5-10.1); CARBON DIOXIDE 26 MMOL/L (21-32); CHLORIDE 105 MMOL/L (98-107); CREATININE 1.3 MG/DL (0.55-1.30); POTASSIUM 3.6 MMOL/L (3.5-5.1); SODIUM 142 MMOL/L (136-145)
[2019-10-03 21:04] LABS: ALANINE AMINOTRANSFERASE 19 U/L (12-78); ALBUMIN 3.9 G/DL (3.4-5.0); ALBUMIN/GLOBULIN RATIO 1.1 (1.0-2.7); ALKALINE PHOSPHATASE 111 U/L (46-116); ASPARTATE AMINO TRANSFERASE 12 U/L (15-37); BILIRUBIN,TOTAL 0.2 MG/DL (0.2-1.0)
[2019-10-03] MEDS ORDERED: HYDROmorphone 1mg/ml Carpuject IVP ONE (21:30)
[2019-10-03] MEDS ORDERED: Fleet's Mineral Oil Enema RECTAL STA (22:24)
[2019-10-03 22:30] VITALS: BP 150/88
--- NOTE | 2019-10-03 22:31 | NUR ---
ED Nurse Note: 2100ML of bright red and pink urine/irrigation fluid emptied from cole, ERMD notified
--- NOTE | 2019-10-03 22:45 | NUR ---
ED Nurse Note: Pt c/o constipation, ERMD notified, enema ordered but pt requesting to be given enema once upstairs, ERMD aware
--- NOTE | 2019-10-03 23:26 | NUR ---
ED Nurse Note: Bladder scan showed 372ml, ERMD aware
--- NOTE | 2019-10-03 23:30 | NUR ---
NURSE NOTES: Patient came from ER via gurney. A&OX4. IV site patent and intact. Skin intact. Belongings were checked, patient has $105.00 chávez, refused to send hospital safe. Three way Britt cath noted, bloody urine noted, irrigated. Bed in lowest position. Call light within reach. Will continue to monitor.
[2019-10-03] MEDS ORDERED: Fleet's Enema 133ml RECTAL ONE (23:45)
[2019-10-03 23:54] VITALS: BP 116/84
[2019-10-04 04:00] VITALS: BP 115/65
[2019-10-04] MEDS: HYDROmorphone 1mg/ml Carpuject IVP PRN ×2 (05:43→10:18)
--- NOTE | 2019-10-04 07:25 | NUR ---
HAND-OFF: Report given to Alexander Patterson RN. VS stable. On continue bladder irrigation. Call light within reach. Will continue to monitor.
--- NOTE | 2019-10-04 07:37 | NUR ---
NURSE NOTES: PT AXOX4, CALM, RESTING IN BED. PT WITH 3 WAY GALLEGOS CONTINUOUS IRRIGATION. URINE IS BRIGHT RED, NO CLOTS NOTED IN GALLEGOS BAG. PT STATES PAIN IS 7 OUT OF 10 OF LOWER ABDOMEN/PELVIC REGION. PT DENIES SOB OR DIZZINESS WHEN AMBULATING. PT HAS SCDs ON AND EDUCATED TO CALL FOR STAFF ASSISTANCE BEFORE AMBULATING. PT VERBALIZED UNDERSTANDING USE OF CALL LIGHT. CALL LIGHT WITHIN REACH. BED IN LOWEST POSITION WITH BEDSIDE RAILS X2 RAISED. WILL CONTINUE TO MONITOR.
[2019-10-04 08:00] VITALS: BP 106/67
[2019-10-04] MEDS: Docusate 100mg cap ORAL SCH ×2 (08:51→17:20)
[2019-10-04] MEDS: Metoprolol Succinate XL 50mg tab ORAL SCH (08:51)
[2019-10-04] MEDS ORDERED: Fleet's Enema 133ml RECTAL PRN (11:15)
[2019-10-04 12:00] VITALS: BP 105/68
[2019-10-04] MEDS: Bisacodyl EC 5mg tab ORAL SCH ×2 (12:08→17:20)
--- NOTE | 2019-10-04 13:27 | NUR ---
*-* INSURANCE *-* ALL AVAILABLE CLINICALS HAVE BEEN FAXED TO: [employer] REF# [id number] UM NURSE:GLEN F: [phone]
--- NOTE | 2019-10-04 13:37 | NUR ---
NURSE NOTES: DR MCALLISTER AT BEDSIDE IRRIGATING WITH 3 WAY GALLEGOS CATH. SEVERAL BLOOD CLOTS NOTED. URINE IS NOW LIGHT RED, CLEAR, NO CLOTS NOTED. PT STATES PAIN IS LOW, 2-3 OUT OF [address] MCALLISTER, PT IS REFRAIN FROM STRAINING WHEN HAVING BOWEL MOVEMENTS. MD WITH ORDERS TO LIMIT NARCOTIC PAIN MEDICATIONS AND ORDERS FOR SCHEDULED AND PRN DULCOLAX, PRN MILK OF MAG AND FLEET SODIUM ENEMA. PT REFUSED PRN MILK OF MAG BUT AGREED TO DULCOLAX. IN NO APPARENT DISTRESS AT THIS TIME. WILL CONTINUE TO MONITOR.
--- NOTE | 2019-10-04 14:53 | NUR ---
NURSE NOTES: PT STATES HE HAS BEEN HAVING TROUBLE SLEEPING AND REQUESTS FOR ATIVAN BY MOUTH. STATES HE HAD IT ON PREVIOUS ADMISSION AND IT WORKED. RN LEFT MESSAGE FOR DR MORGAN.
--- NOTE | 2019-10-04 14:55 | NUR ---
CASE MANAGEMENT: INITIAL REVIEW 59YR OLD MALE FROM HOME CC:MALE UROGENITAL PROBLEMS; BLOOD CLOTS URINARY FREQUENCY AND URGENCY PMHX: S/P PROSTATE SURGERY SI:HEMATURIA 98.7 90 19 159/98 97% ON RA BG 137 CA+ 7.8 IS:IVF NS BOLUS X1 IV MORPHINE SULFATE X1 IV DILAUDID X1 IV ZOFRAN X1 \:3E MED SURG UNIT PLAN: CONTINUOUS BLADDER IRRIGATION FLEET ENEMA MINERAL OIL POST VOID RESIDUAL START ON IV ABX CASE MANAGEMENT:REVIEW 10/04/19 SI:HEMATURIA 98.7 90 19 159/98 97% ON RA BG 137 CA+ 7.8 IS:IV LEVAQUIN QD IV DILAUDID Q4HR/PRN IV DULCOLAX PO BID \:3E MED SURG UNIT PLAN: CONT CONTINUOUS BLADDER IRRIGATION FLEET ENEMA PRN MINERAL OIL PRN POST VOID RESIDUAL START ON IV ABX
[2019-10-04 16:00] VITALS: BP 110/68
--- NOTE | 2019-10-04 16:30 | History and Physical Report ---
DATE OF ADMISSION: 10/03/2019 HISTORY OF PRESENT ILLNESS: This is a 59-year-old male who recently underwent a TURP on 09/19/2019. He was then discharged and had to be readmitted for hematuria. He was then discharged again. He stopped antibiotics recently, however, he returned back with hematuria and blood clots again. A Britt has been placed and he is on a three-way irrigation. PAST MEDICAL HISTORY: Notable for recent TURP. No other significant medical history noted. The patient is a known hypertensive, on Norvasc. REVIEW OF SYSTEMS: Denies any headaches, hematemesis, melena, hematochezia, night sweats, or weight loss. PHYSICAL EXAMINATION: GENERAL: Reveals a 59-year-old male. VITAL SIGNS: Blood pressure , heart rate 74, respirations 18. O2 saturation 98% on room air. HEENT: Unremarkable. LUNGS: Clear breath sounds bilaterally. ABDOMEN: Soft. EXTREMITIES: There is no edema. GENITOURINARY: Britt catheter in place. LABORATORY DATA: Lab testing shows normal CBC and BMP. Urinalysis shows multiple rbc's. IMAGING STUDIES: None. IMPRESSION: 1. Hematuria. 2. Status post transurethral resection of prostate. 3. Hypertension. DISCUSSION: Admit to the hospital. We will initiate three-way bladder irrigation. Continue Norvasc. We will start Levaquin. Continue metoprolol. Pain control. Urology consultation. We will follow. Skyler Devries M.D. DR: JAY JOB#: [id number] CC:
[2019-10-04] MEDS: LORazepam 0.5mg tab ORAL PRN (18:50)
--- NOTE | 2019-10-04 19:06 | NUR ---
NURSE NOTES: RN RECEIVED ORDER FOR ATIVAN 0.5MG PO PRN TID ANXIETY/INSOMNIA. ORDER ENTERED.
--- NOTE | 2019-10-04 19:07 | NUR ---
HAND-OFF: Report given to Eddie TORRES RN.
--- NOTE | 2019-10-04 19:44 | NUR ---
NURSE NOTES: Patient in bed, awake and alert x4. On room air with no signs of distress or SOB. 3-way Britt in place; continuous irrigation in progress. Urine is pink-red color; no clots noted. No C/O pain at this time. Bed locked and in lowest position. Call light in reach. Instructed to call for assistance. Will continue to monitor the patient.
[2019-10-04 20:00] VITALS: BP 117/73
[2019-10-04 23:49] VITALS: BP 114/75
[2019-10-05 04:00] VITALS: BP 109/73
[2019-10-05] MEDS: Milk of Magnesia 30ml Ud ORAL PRN (04:07)
[2019-10-05] MEDS: HYDROmorphone 1mg/ml Carpuject IVP PRN ×3 (04:33→23:33)
[2019-10-05 06:54] LABS: ANION GAP 7 mmol/L (5-15); BLOOD UREA NITROGEN 13 mg/dL (7-18); CALCIUM 7.9 MG/DL (8.5-10.1); CARBON DIOXIDE 26 MMOL/L (21-32); CHLORIDE 105 MMOL/L (98-107); CREATININE 1.1 MG/DL (0.55-1.30); SODIUM 138 MMOL/L (136-145)
[2019-10-05 07:18] LABS: EOSINOPHILS % (AUTO) 10.1 % (0.0-3.0); HEMATOCRIT 36.9 % (42.0-52.0); HEMOGLOBIN 11.6 G/DL (14.2-18.0); LYMPHOCYTES % (AUTO) 13.2 % (20.0-45.0); MEAN CORPUSCULAR VOLUME 83 FL (80-99); MONOCYTES % (AUTO) 7.8 % (1.0-10.0); NEUTROPHILS % (AUTO) 67.9 % (45.0-75.0); PLATELET COUNT 270 K/UL (150-450); RED BLOOD COUNT 4.46 M/UL (4.70-6.10); RED CELL DISTRIBUTION WIDTH 14.1 % (11.6-14.8); WHITE BLOOD COUNT 8.7 K/UL (4.8-10.8)
--- NOTE | 2019-10-05 07:38 | NUR ---
HAND-OFF: Report given to ED Jung.
--- NOTE | 2019-10-05 07:42 | NUR ---
NURSE NOTES: patient is in the bed alert and awake. no SOB noted. patient just finished breakfast; tolerated meals well. exchanged greetings with patient. irrigation bag inplace and infusing properly. urine output slightly red at this time, no acute distress noted. call light is within reach.
[2019-10-05 08:00] VITALS: BP 119/73
[2019-10-05] MEDS: Bisacodyl EC 5mg tab ORAL SCH ×2 (08:38→17:49)
[2019-10-05] MEDS: Docusate 100mg cap ORAL SCH ×2 (08:38→17:49)
[2019-10-05] MEDS: Metoprolol Succinate XL 50mg tab ORAL SCH (08:39)
--- NOTE | 2019-10-05 09:15 | NUR ---
CASE MANAGEMENT:REVIEW 10/05/19 SI: HEMATURIA. S/P TURP 09/19/19 97.8 78 19 119/73 96% ON RA H/H-11.6/36.9 GLUCOSE+117 CA-7.9 IS: IV LEVAQUIN Q24 NORVASC PO QD COLACE PO BID TOPROL XL PO QD IV DILAUDID Q4HRS PRN : MED/SURG STATUS 3 EAST DCP: PATIENT IS FROM HOME
--- NOTE | 2019-10-05 10:10 | NUR ---
*-* INSURANCE *-* UPDATED CLINICALS AND REVIEWS HAVE BEEN FAXED TO: [employer] REF# [id number] UM NURSE:GLEN F: [phone]
--- NOTE | 2019-10-05 11:36 | Pulmonology Progress Note ---
Subjective Interval Events: Urine now light pink Constitutional: Reports: no symptoms HEENT: Repors: no symptoms Respiratory: Reports: no symptoms Cardiovascular: Reports: no symptoms Gastrointestinal/Abdominal: Reports: no symptoms Allergies: Coded Allergies: No Known Allergies (Unverified , 09/17/19) Objective Last 24 Hour Vital Signs Date Time Temp Pulse Resp B/P (MAP) Pulse Ox O2 Delivery O2 Flow Rate FiO2 10/05/19 09:00 Room Air 10/05/19 08:39 74 119/73 10/05/19 08:39 74 119/73 10/05/19 08:00 97.8 78 19 119/73 (88) 96 10/05/19 04:00 97.0 74 19 109/73 (85) 97 10/04/19 23:49 97.8 87 20 114/75 (88) 95 10/04/19 20:07 Room Air 10/04/19 20:00 97.9 73 19 117/73 (88) 96 10/04/19 16:00 97.8 65 18 110/68 (82) 96 10/04/19 12:00 98.4 69 19 105/68 (80) 97 Intake and Output 10/04/19 10/05/19 19:00 07:00 Output Total 3000 ml 4700 ml Balance -3000 ml -4700 ml Output Urine Total 600 ml 2300 ml Other 2400 ml 2400 ml General Appearance: no acute distress HEENT: normocephalic Respiratory: chest wall non-tender, lungs clear Cardiovascular: normal peripheral pulses Abdomen: normal bowel sounds Microbiology Date/Time Source Procedure Growth Status 10/04/19 01:00 Rectum Received Laboratory Tests 10/05/19 05:05: White Blood Count 8.7, Red Blood Count 4.46L, Hemoglobin 11.6L, Hematocrit 36.9L , Mean Corpuscular Volume 83, Mean Corpuscular Hemoglobin 25.9L, Mean Corpuscular Hemoglobin Concent 31.3L, Red Cell Distribution Width 14.1, Platelet Count 270, Mean Platelet Volume 7.8, Neutrophils (%) (Auto) 67.9, Lymphocytes (%) (Auto) 13.2L, Monocytes (%) (Auto) 7.8, Eosinophils (%) (Auto) 10.1H, Basophils (%) (Auto) 1.0, Sodium Level 138, Potassium Level 4.0, Chloride Level 105, Carbon Dioxide Level 26, Anion Gap 7, Blood Urea Nitrogen 13 , Creatinine 1.1, Estimat Glomerular Filtration Rate > 60, Glucose Level 117H, Calcium Level 7.9L Current Medications Medications (Trade) Dose Ordered Sig/Lita Route PRN Reason Start Time Stop Time Status Last Admin Dose Admin Acetaminophen (Tylenol) 650 mg Q4H PRN ORAL Temp >100.5 10/04/19 00:45 11/03/19 00:44 Amlodipine Besylate (Norvasc) 5 mg DAILY ORAL 10/04/19 09:00 11/03/19 08:59 10/05/19 08:39 Bisacodyl (Dulcolax) 5 mg BID ORAL 10/04/19 11:15 01/02/20 11:14 10/05/19 08:38 Bisacodyl (Dulcolax) 10 mg BID PRN RECTAL Constipation 10/04/19 11:15 01/02/20 11:14 Docusate Sodium (Colace) 100 mg TWICE A DAY ORAL 10/04/19 09:00 11/03/19 08:59 10/05/19 08:38 Hydromorphone HCl (Dilaudid) 1 mg Q4H PRN IVP For Pain 10/04/19 00:45 10/11/19 00:44 10/05/19 04:33 Levofloxacin 100 ml @ 100 mls/hr Q24H IVPB 10/04/19 02:00 10/11/19 01:59 10/05/19 01:55 Lorazepam (Ativan) 0.5 mg TIDPRN PRN ORAL ANXIETY AND INSOMNIA 10/04/19 18:15 10/11/19 18:14 10/04/19 18:50 Magnesium Hydroxide (Mom) 30 ml DAILYPRN PRN ORAL Constipation 10/04/19 11:15 11/03/19 11:14 10/05/19 04:07 Metoprolol Succinate (Toprol XL) 50 mg DAILY ORAL 10/04/19 09:00 01/02/20 08:59 10/05/19 08:39 Sodium Phosphate (Fleet's Sodium Phosl Enema) 133 ml DAILYPRN PRN RECTAL Constipation 10/04/19 11:15 11/03/19 11:14 Assessment/Plan Assessment/Plan IMPRESSION: 1. Hematuria. 2. Status post transurethral resection of prostate. 3. Hypertension. DISCUSSION: Stop three-way bladder irrigation. Continue Norvasc. Continue Levaquin. Continue metoprolol. Pain control. I will follow. Vinnie Glover Omar Syed MD Oct 05, 2019 11:36
--- NOTE | 2019-10-05 11:38 | NUR ---
NURSE NOTES: Seen and evaluated by and stop continuous bladder irrigation for now and monitor. Order noted and carried out.
[2019-10-05 12:00] VITALS: BP 126/80
--- NOTE | 2019-10-05 13:49 | NUR ---
HAND-OFF: Report given to Delisa.
--- NOTE | 2019-10-05 14:46 | NUR ---
NURSE NOTES: Noted urine bloody with clots in cole tubing. Restarted CBI per Dr. Beth's order.
[2019-10-05 16:00] VITALS: BP 128/77
--- NOTE | 2019-10-05 19:12 | NUR ---
HAND-OFF: Report given to Chucho WARD.
--- NOTE | 2019-10-05 19:15 | NUR ---
NURSE NOTES: Received report from ED Bryan. Patient is in the bed alert/orientedx4. Breathing regular and unlabored. Pt denies pain, no distress noted. Iv on R AC saline locked. 3 way f/c:CBI, Bed on low and locked position. call light within reach. Will continue to monitor.
[2019-10-05 20:00] VITALS: BP 115/74
[2019-10-05] MEDS: LORazepam 0.5mg tab ORAL PRN (22:18)
[2019-10-06] VITALS: BP 125/82
[2019-10-06 04:00] VITALS: BP 110/73
[2019-10-06] MEDS: Milk of Magnesia 30ml Ud ORAL PRN (04:01)
--- NOTE | 2019-10-06 06:25 | NUR ---
NURSE NOTES: [id number] (CBI) = 450 urine output. Red/pink color with few blood clots noted each output
--- NOTE | 2019-10-06 07:15 | NUR ---
HAND-OFF: Report given to ED Burt. Pt kay.
--- NOTE | 2019-10-06 07:20 | NUR ---
NURSE NOTES: Handoff received from Chucho WARD. Patient is awake and alert, no signs of distress noted. R AC 20g is patent and asymptomatic, saline locked. Patient has three way cole, continuous bladder irrigation. Blood clots noted in cole drainage bag, output is pink. Bed is low and locked, side rails up x2, call light is within reach.
[2019-10-06] MEDS ORDERED: Tubing IV Secondary IV ONE (07:28)
[2019-10-06] MEDS ORDERED: NS Irrig 2000ml IRRIG ONE (07:28)
[2019-10-06] MEDS ORDERED: NS Irrig 1000ml ONE (07:28)
[2019-10-06] MEDS ORDERED: NS Irrig 4000ml IRRIG ONE ×2 (07:28)
[2019-10-06] MEDS ORDERED: NS 275ml ONE ×2 (07:28→21:17)
[2019-10-06 08:00] VITALS: BP 124/90
[2019-10-06] MEDS: Docusate 100mg cap ORAL SCH ×2 (08:05→17:04)
[2019-10-06] MEDS: Bisacodyl EC 5mg tab ORAL SCH ×2 (08:05→17:04)
[2019-10-06] MEDS: Metoprolol Succinate XL 50mg tab ORAL SCH (08:06)
--- NOTE | 2019-10-06 11:41 | Pulmonology Progress Note ---
Subjective Interval Events: Urine now light pink; back on irrigation Constitutional: Reports: no symptoms HEENT: Repors: no symptoms Respiratory: Reports: no symptoms Cardiovascular: Reports: no symptoms Gastrointestinal/Abdominal: Reports: no symptoms Allergies: Coded Allergies: No Known Allergies (Unverified , 09/17/19) Objective Last 24 Hour Vital Signs Date Time Temp Pulse Resp B/P (MAP) Pulse Ox O2 Delivery O2 Flow Rate FiO2 10/06/19 09:00 Room Air 10/06/19 08:06 78 124/90 10/06/19 08:06 78 124/90 10/06/19 08:00 97.6 78 20 124/90 (101) 97 10/06/19 04:00 97.7 78 18 110/73 (85) 97 10/06/19 00:00 97.9 76 18 125/82 (96) 96 10/05/19 21:00 Room Air 10/05/19 20:00 97.6 74 16 115/74 (88) 94 10/05/19 16:00 97.7 73 16 128/77 (94) 97 10/05/19 12:00 98.1 71 18 126/80 (95) 97 Intake and Output 10/05/19 10/06/19 19:00 07:00 Intake Total 1100 ml 480 ml Output Total 38916 ml 450 ml Balance -95644 ml 30 ml Intake Oral 1100 ml 480 ml Output Urine Total 26307 ml 450 ml Other 96731 ml General Appearance: no acute distress HEENT: normocephalic Respiratory: chest wall non-tender, lungs clear Cardiovascular: normal peripheral pulses Abdomen: normal bowel sounds Microbiology Date/Time Source Procedure Growth Status 10/04/19 01:00 Nasal Nares 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 Complete 10/04/19 01:00 Rectum - Final NO CARBAPENEM-RESISTANT ENTEROBACTERI... Complete Current Medications Medications (Trade) Dose Ordered Sig/Lita Route PRN Reason Start Time Stop Time Status Last Admin Dose Admin Acetaminophen (Tylenol) 650 mg Q4H PRN ORAL Temp >100.5 10/04/19 00:45 11/03/19 00:44 Amlodipine Besylate (Norvasc) 5 mg DAILY ORAL 10/07/19 09:00 11/03/19 08:59 Bisacodyl (Dulcolax) 5 mg BID ORAL 10/04/19 11:15 01/02/20 11:14 10/06/19 08:05 Bisacodyl (Dulcolax) 10 mg BID PRN RECTAL Constipation 10/04/19 11:15 01/02/20 11:14 Docusate Sodium (Colace) 100 mg TWICE A DAY ORAL 10/04/19 09:00 11/03/19 08:59 10/06/19 08:05 Hydromorphone HCl (Dilaudid) 1 mg Q4H PRN IVP For Pain 10/04/19 00:45 10/11/19 00:44 10/05/19 23:33 Levofloxacin 100 ml @ 100 mls/hr Q24H IVPB 10/04/19 02:00 10/11/19 01:59 10/06/19 02:06 Lorazepam (Ativan) 0.5 mg TIDPRN PRN ORAL ANXIETY AND INSOMNIA 10/04/19 18:15 10/11/19 18:14 10/05/19 22:18 Magnesium Hydroxide (Mom) 30 ml DAILYPRN PRN ORAL Constipation 10/04/19 11:15 11/03/19 11:14 10/06/19 04:01 Metoprolol Succinate (Toprol XL) 50 mg DAILY ORAL 10/07/19 09:00 01/02/20 08:59 Sodium Phosphate (Fleet's Sodium Phosl Enema) 133 ml DAILYPRN PRN RECTAL Constipation 10/04/19 11:15 11/03/19 11:14 Assessment/Plan Assessment/Plan IMPRESSION: 1. Hematuria. 2. Status post transurethral resection of prostate. 3. Hypertension. DISCUSSION: Back on three-way bladder irrigation. Continue Norvasc. Continue Levaquin. Continue metoprolol. Pain control. I will follow. Check labs in AM Vinnie Glover Omar Syed MD Oct 06, 2019 11:41
[2019-10-06 12:00] VITALS: BP 111/73
--- NOTE | 2019-10-06 12:07 | NUR ---
NURSE NOTES: Output is light pink, 1-2 small blood clots noted. Patient was encouraged to ambulate.
--- NOTE | 2019-10-06 12:26 | NUR ---
CASE MANAGEMENT:REVIEW 10/06/2019 SI: HEMATURIA. S/P TURP 09/19/19 T 97.6 HR 78 RR 20 B/P 124/90 SATS 97% ON RA LABS: NONE TODAY IS: IV LEVAQUIN Q24H NORVASC PO QD COLACE PO BID TOPROL XL PO QD IV DILAUDID Q4HRS PRN : MED/SURG STATUS 3 EAST DCP: PATIENT IS FROM HOME
[2019-10-06 16:00] VITALS: BP 123/74
--- NOTE | 2019-10-06 18:00 | NUR ---
NURSE NOTES: Patient's output is very light pink, small yellow mucus-like clots are noted
--- NOTE | 2019-10-06 19:22 | NUR ---
HAND-OFF: Report given to Noelle WARD.
--- NOTE | 2019-10-06 19:30 | NUR ---
NURSE NOTES: Receive a report from ED Burt. Round is done. Pt is awake and alert, watching TV sitting a chair. Complain for abdominal pain, 8/10. Will provide pain medication as ordered. On CBI with NS via a 3-way cole catheter. No visible blood clots noted but a little bit of sediments. Call light within reach. Will continue to monitor.
[2019-10-06] MEDS: HYDROmorphone 1mg/ml Carpuject IVP PRN (19:37)
[2019-10-06 20:00] VITALS: BP 129/76
--- NOTE | 2019-10-06 20:30 | NUR ---
NURSE NOTES: Pain decreased after pain medication. Still on CBI and will continue to monitor.
--- NOTE | 2019-10-06 21:45 | NUR ---
NURSE NOTES: No noted blood clots. Stop bladder irrigation and will continue to monitor.
--- NOTE | 2019-10-06 22:00 | NUR ---
NURSE NOTES: Call Dr. Devries and notify about urine without blood clots and continue to bladder irrigation. Order carried out. Will continue to monitor.
[2019-10-06] MEDS: LORazepam 0.5mg tab ORAL PRN (22:19)
[2019-10-07] VITALS: BP 109/70
[2019-10-07 05:30] VITALS: BP 114/74
--- NOTE | 2019-10-07 05:30 | NUR ---
NURSE NOTES: After pt came back from bathroom, noted blood clot via cole catheter. On CBI. VSS are stable and no dizziness noted. Will continue to monitor.
[2019-10-07] MEDS: HYDROmorphone 1mg/ml Carpuject IVP PRN ×3 (05:33→18:41)
[2019-10-07 06:19] LABS: ANION GAP 7 mmol/L (5-15); BLOOD UREA NITROGEN 13 mg/dL (7-18); CALCIUM 7.9 MG/DL (8.5-10.1); CARBON DIOXIDE 30 MMOL/L (21-32); CHLORIDE 106 MMOL/L (98-107); CREATININE 1.2 MG/DL (0.55-1.30); POTASSIUM 3.8 MMOL/L (3.5-5.1); SODIUM 143 MMOL/L (136-145)
[2019-10-07 06:20] LABS: BASOPHILS % (AUTO) 1.2 % (0.0-2.0); EOSINOPHILS % (AUTO) 15.1 % (0.0-3.0); HEMOGLOBIN 11.3 G/DL (14.2-18.0); MEAN CORPUSCULAR VOLUME 84 FL (80-99); MONOCYTES % (AUTO) 8.7 % (1.0-10.0); NEUTROPHILS % (AUTO) 60.1 % (45.0-75.0); PLATELET COUNT 302 K/UL (150-450); RED BLOOD COUNT 4.42 M/UL (4.70-6.10); WHITE BLOOD COUNT 8.4 K/UL (4.8-10.8)
--- NOTE | 2019-10-07 07:00 | NUR ---
NURSE NOTES: No noted blood clots noted via cole catheter. Pt wants to have outside food. Educate for cardiac diet. Pt verbalizes understanding.
--- NOTE | 2019-10-07 07:15 | NUR ---
HAND-OFF: Report given to ED Burt. Round is done. On CBI via cole catheter with NS. Will continue to monitor.
--- NOTE | 2019-10-07 07:18 | NUR ---
NURSE NOTES: Handoff received from [facility] RN. Patient is awake and alert, no signs of distress noted. Right AC IV is intact and asymptomatic, saline locked. Patient has 3 way cole, continuous bladder irrigation. Out put is light pink, small blood clots noted. Bed is low and locked, side rails up x2, call light within reach.
[2019-10-07 08:00] VITALS: BP 116/78
[2019-10-07] MEDS: Metoprolol Succinate XL 50mg tab ORAL SCH (08:06)
[2019-10-07] MEDS: Docusate 100mg cap ORAL SCH ×2 (08:14→18:40)
[2019-10-07] MEDS: Bisacodyl EC 5mg tab ORAL SCH ×2 (08:14→18:40)
--- NOTE | 2019-10-07 09:50 | NUR ---
NURSE NOTES: Per Dr. Devries irrigation was stopped. Patient encouraged to drink more fluids, will continue to monitor.
--- NOTE | 2019-10-07 10:05 | Pulmonology Progress Note ---
Subjective Interval Events: Urine now light pink; back on irrigation Constitutional: Reports: no symptoms HEENT: Repors: no symptoms Respiratory: Reports: no symptoms Cardiovascular: Reports: no symptoms Gastrointestinal/Abdominal: Reports: no symptoms Allergies: Coded Allergies: No Known Allergies (Unverified , 09/17/19) Objective Last 24 Hour Vital Signs Date Time Temp Pulse Resp B/P (MAP) Pulse Ox O2 Delivery O2 Flow Rate FiO2 10/07/19 08:06 64 116/78 10/07/19 08:06 64 116/78 10/07/19 08:00 97.4 64 17 116/78 (91) 96 10/07/19 05:30 97.3 76 20 114/74 (87) 96 10/07/19 00:00 98.1 67 20 109/70 (83) 98 10/06/19 21:00 Room Air 10/06/19 20:00 98.3 71 20 129/76 (93) 95 10/06/19 16:00 98.1 70 20 123/74 (90) 97 10/06/19 12:00 97.8 73 18 111/73 (86) 96 Intake and Output 10/06/19 10/07/19 19:00 07:00 Intake Total 500 ml 350 ml Output Total 1300 ml 450 ml Balance -800 ml -100 ml Intake Oral 500 ml 350 ml Output Urine Total 1300 ml 450 ml General Appearance: no acute distress HEENT: normocephalic Respiratory: chest wall non-tender, lungs clear Cardiovascular: normal peripheral pulses Abdomen: normal bowel sounds Laboratory Tests 10/07/19 04:50: White Blood Count 8.4, Red Blood Count 4.42L, Hemoglobin 11.3L, Hematocrit 37.0L , Mean Corpuscular Volume 84, Mean Corpuscular Hemoglobin 25.6L, Mean Corpuscular Hemoglobin Concent 30.5L, Red Cell Distribution Width 14.0, Platelet Count 302, Mean Platelet Volume 7.4, Neutrophils (%) (Auto) 60.1, Lymphocytes (%) (Auto) 15.0L, Monocytes (%) (Auto) 8.7, Eosinophils (%) (Auto) 15.1H, Basophils (%) (Auto) 1.2, Sodium Level 143, Potassium Level 3.8, Chloride Level 106, Carbon Dioxide Level 30, Anion Gap 7, Blood Urea Nitrogen 13 , Creatinine 1.2, Estimat Glomerular Filtration Rate > 60, Glucose Level 107H, Calcium Level 7.9L Current Medications Medications (Trade) Dose Ordered Sig/Lita Route PRN Reason Start Time Stop Time Status Last Admin Dose Admin Acetaminophen (Tylenol) 650 mg Q4H PRN ORAL Temp >100.5 10/04/19 00:45 11/03/19 00:44 Amlodipine Besylate (Norvasc) 5 mg DAILY ORAL 10/07/19 09:00 11/03/19 08:59 10/07/19 08:06 Bisacodyl (Dulcolax) 5 mg BID ORAL 10/04/19 11:15 01/02/20 11:14 10/06/19 08:05 Bisacodyl (Dulcolax) 10 mg BID PRN RECTAL Constipation 10/04/19 11:15 01/02/20 11:14 Docusate Sodium (Colace) 100 mg TWICE A DAY ORAL 10/04/19 09:00 11/03/19 08:59 10/06/19 08:05 Hydromorphone HCl (Dilaudid) 1 mg Q4H PRN IVP For Pain 10/04/19 00:45 10/11/19 00:44 10/07/19 09:41 Levofloxacin 100 ml @ 100 mls/hr Q24H IVPB 10/04/19 02:00 10/11/19 01:59 10/07/19 02:06 Lorazepam (Ativan) 0.5 mg TIDPRN PRN ORAL ANXIETY AND INSOMNIA 10/04/19 18:15 10/11/19 18:14 10/06/19 22:19 Magnesium Hydroxide (Mom) 30 ml DAILYPRN PRN ORAL Constipation 10/04/19 11:15 11/03/19 11:14 10/06/19 04:01 Metoprolol Succinate (Toprol XL) 50 mg DAILY ORAL 10/07/19 09:00 01/02/20 08:59 10/07/19 08:06 Sodium Phosphate (Fleet's Sodium Phosl Enema) 133 ml DAILYPRN PRN RECTAL Constipation 10/04/19 11:15 11/03/19 11:14 Assessment/Plan Assessment/Plan IMPRESSION: 1. Hematuria. 2. Status post transurethral resection of prostate. 3. Hypertension. DISCUSSION: Back on three-way bladder irrigation. Will dc today Continue Norvasc. Continue Levaquin. Continue metoprolol. Pain control. I will follow. Check labs in AM Vinnie Glover Omar Syed MD Oct 07, 2019 10:05
[2019-10-07 12:00] VITALS: BP 123/79
--- NOTE | 2019-10-07 12:00 | NUR ---
NURSE NOTES: Patient's output is dark heather, no blood clots noted. Patient was encouraged to increase fluid intake. Will continue to monitor.
--- NOTE | 2019-10-07 12:05 | NUR ---
CASE MANAGEMENT:REVIEW 10/07/2019 SI: HEMATURIA. S/P TURP 09/19/19 97.4 64 17 116/78 96% ON RA BG 107 CA+ 7.9 IS: IV LEVAQUIN QD NORVASC PO QD COLACE PO BID TOPROL XL PO QD IV DILAUDID Q4HRS PRN : MED/SURG STATUS 3 EAST DCP: PATIENT IS FROM HOME PLAN: AM LABS
--- NOTE | 2019-10-07 12:09 | NUR ---
*-* INSURANCE *-* UPDATED CLINICALS AND REVIEWS HAVE BEEN FAXED TO: [facility] REF# [id number] UM NURSE:GLEN F: [phone]
[2019-10-07] MEDS ORDERED: NS Irrig 2000ml IRRIG ONE (13:21)
[2019-10-07 16:00] VITALS: BP 123/75
--- NOTE | 2019-10-07 19:20 | NUR ---
HAND-OFF: Report given to Sapphire WARD.
--- NOTE | 2019-10-07 19:30 | NUR ---
NURSE NOTES: Receive a report from ED Burt. Round is done. Pt is awake and alert. No acute distress noted. Pain is relieved but still states he feels for discomfort. Noted hematuria via cole catheter. Waiting for call-back from Dr. Devries. Will continue to monitor.
--- NOTE | 2019-10-07 19:40 | NUR ---
HAND-OFF: Report given to ED Renae. Round is made. Will continue to monitor.
--- NOTE | 2019-10-07 19:45 | NUR ---
NURSE NOTES: Report received from ED Leary. Patient in stable condition. Patient seems to be anxious regarding the CBI. Hematuria noted.
[2019-10-07 20:00] VITALS: BP 125/79
--- NOTE | 2019-10-07 20:52 | NUR ---
NURSE NOTES: Notified Dr. Beth regarding hematuria. Received order to restart CBI
[2019-10-07] MEDS: LORazepam 0.5mg tab ORAL PRN (21:58)
[2019-10-08] VITALS: BP 123/70
[2019-10-08 04:00] VITALS: BP 118/75
[2019-10-08 07:11] LABS: BASOPHILS % (AUTO) 1.3 % (0.0-2.0); EOSINOPHILS % (AUTO) 17.1 % (0.0-3.0); HEMOGLOBIN 12.4 G/DL (14.2-18.0); LYMPHOCYTES % (AUTO) 17.1 % (20.0-45.0); MEAN CORPUSCULAR VOLUME 83 FL (80-99); MONOCYTES % (AUTO) 7.4 % (1.0-10.0); NEUTROPHILS % (AUTO) 57.1 % (45.0-75.0); PLATELET COUNT 365 K/UL (150-450); RED BLOOD COUNT 4.81 M/UL (4.70-6.10)
[2019-10-08 07:24] LABS: ANION GAP 9 mmol/L (5-15); BLOOD UREA NITROGEN 13 mg/dL (7-18); CALCIUM 8.1 MG/DL (8.5-10.1); CARBON DIOXIDE 28 MMOL/L (21-32); CHLORIDE 105 MMOL/L (98-107); CREATININE 1.2 MG/DL (0.55-1.30); POTASSIUM 3.7 MMOL/L (3.5-5.1); SODIUM 142 MMOL/L (136-145)
--- NOTE | 2019-10-08 07:56 | NUR ---
NURSE NOTES: Received report from ED Renae. Patient is awake and alert, no signs of distress noted. Pt denies any pain at this time. IV is intact and asymptomatic, saline locked. Patient has 3 way cole with continuous bladder irrigation. Out put is clear light pink, no blood clots noted. Bed is low and locked, side rails up x2, call light within reach.
[2019-10-08 08:00] VITALS: BP 119/75
[2019-10-08] MEDS: Docusate 100mg cap ORAL SCH ×2 (08:29→18:00)
[2019-10-08] MEDS: Bisacodyl EC 5mg tab ORAL SCH ×2 (08:30→18:00)
[2019-10-08] MEDS: Metoprolol Succinate XL 50mg tab ORAL SCH (08:31)
[2019-10-08] MEDS: HYDROmorphone 1mg/ml Carpuject IVP PRN ×2 (08:40→16:07)
--- NOTE | 2019-10-08 09:40 | NUR ---
NURSE NOTES: Pt seen by Dr. Tomlinson. Irrigated cole with NS about 700cc and removed cole. Encouraged pt to drink a lot. urinal at the bedside. Will monitor urine output.
--- NOTE | 2019-10-08 10:20 | Pulmonology Progress Note ---
Subjective Interval Events: Seen by urology Constitutional: Reports: no symptoms HEENT: Repors: no symptoms Respiratory: Reports: no symptoms Cardiovascular: Reports: no symptoms Gastrointestinal/Abdominal: Reports: no symptoms Allergies: Coded Allergies: No Known Allergies (Unverified , 09/17/19) Objective Last 24 Hour Vital Signs Date Time Temp Pulse Resp B/P (MAP) Pulse Ox O2 Delivery O2 Flow Rate FiO2 10/08/19 09:10 97.6 10/08/19 09:00 Room Air 10/08/19 08:31 82 119/75 10/08/19 08:31 82 119/75 10/08/19 08:00 97.6 82 18 119/75 (90) 97 10/08/19 04:00 98.4 72 18 118/75 (89) 96 10/08/19 00:00 98.6 70 18 123/70 (87) 95 10/07/19 21:00 Room Air 10/07/19 20:00 98.0 70 18 125/79 (94) 96 10/07/19 16:00 98.0 64 18 123/75 (91) 96 10/07/19 12:00 97.9 68 18 123/79 (94) 96 Intake and Output 10/07/19 10/08/19 19:00 07:00 Intake Total 1300 ml 1200 ml Output Total 800 ml 900 ml Balance 500 ml 300 ml Intake Oral 1300 ml 1200 ml Output Urine Total 800 ml 900 ml # Bowel Movements 1 1 General Appearance: no acute distress HEENT: normocephalic Respiratory: chest wall non-tender, lungs clear Cardiovascular: normal peripheral pulses Abdomen: normal bowel sounds Laboratory Tests 10/08/19 04:00: White Blood Count 8.0, Red Blood Count 4.81, Hemoglobin 12.4L, Hematocrit 40.0L , Mean Corpuscular Volume 83, Mean Corpuscular Hemoglobin 25.7L, Mean Corpuscular Hemoglobin Concent 30.9L, Red Cell Distribution Width 14.0, Platelet Count 365, Mean Platelet Volume 7.5, Neutrophils (%) (Auto) 57.1, Lymphocytes (%) (Auto) 17.1L, Monocytes (%) (Auto) 7.4, Eosinophils (%) (Auto) 17.1H, Basophils (%) (Auto) 1.3, Sodium Level 142, Potassium Level 3.7, Chloride Level 105, Carbon Dioxide Level 28, Anion Gap 9, Blood Urea Nitrogen 13 , Creatinine 1.2, Estimat Glomerular Filtration Rate > 60, Glucose Level 105, Calcium Level 8.1L Current Medications Medications (Trade) Dose Ordered Sig/Lita Route PRN Reason Start Time Stop Time Status Last Admin Dose Admin Acetaminophen (Tylenol) 650 mg Q4H PRN ORAL Temp >100.5 10/04/19 00:45 11/03/19 00:44 Amlodipine Besylate (Norvasc) 5 mg DAILY ORAL 10/07/19 09:00 11/03/19 08:59 10/08/19 08:31 Bisacodyl (Dulcolax) 5 mg BID ORAL 10/04/19 11:15 01/02/20 11:14 10/08/19 08:30 Bisacodyl (Dulcolax) 10 mg BID PRN RECTAL Constipation 10/04/19 11:15 01/02/20 11:14 Docusate Sodium (Colace) 100 mg TWICE A DAY ORAL 10/04/19 09:00 11/03/19 08:59 10/08/19 08:29 Hydromorphone HCl (Dilaudid) 1 mg Q4H PRN IVP For Pain 10/04/19 00:45 10/11/19 00:44 10/08/19 08:40 Levofloxacin 100 ml @ 100 mls/hr Q24H IVPB 10/04/19 02:00 10/11/19 01:59 10/08/19 02:00 Lorazepam (Ativan) 0.5 mg TIDPRN PRN ORAL ANXIETY AND INSOMNIA 10/04/19 18:15 10/11/19 18:14 10/07/19 21:58 Magnesium Hydroxide (Mom) 30 ml DAILYPRN PRN ORAL Constipation 10/04/19 11:15 11/03/19 11:14 10/06/19 04:01 Metoprolol Succinate (Toprol XL) 50 mg DAILY ORAL 10/07/19 09:00 01/02/20 08:59 10/08/19 08:31 Sodium Phosphate (Fleet's Sodium Phosl Enema) 133 ml DAILYPRN PRN RECTAL Constipation 10/04/19 11:15 11/03/19 11:14 Assessment/Plan Assessment/Plan IMPRESSION: 1. Hematuria. 2. Status post transurethral resection of prostate. 3. Hypertension. DISCUSSION: Lorenza kent per urology Continue Norvasc. Continue Levaquin. Continue metoprolol. Pain control. I will follow. Observe today; yoli planning for home in AM Skyler Devries M.D. Skyler Devries MD Oct 08, 2019 10:20
--- NOTE | 2019-10-08 10:46 | NUR ---
*-* INSURANCE *-* UPDATED CLINICALS HAVE BEEN FAXED TO: [facility] REF# [id number] UM NURSE:GLEN F: [phone]
--- NOTE | 2019-10-08 11:14 | NUR ---
NURSE NOTES: Pt voided 160cc after removal of F/C Addendum: 10/08/19 at 1121 by George Brandon RN Clear yellow urine. No blood clots. No sediments.
[2019-10-08 12:00] VITALS: BP 121/75
--- NOTE | 2019-10-08 12:03 | Consultation ---
History of Present Illness General Date patient seen: Oct 08, 2019 Reason for Hospitalization: Male Urogenital Problems Present Illness HPI 59 year old male well known to me from prior admissions. Hx of TURP and was discharged safely but returned with hematuria. late entry as was initially seen a upon admission and undergoing CBI as per urology with large cole placed. surgery called to evaluate for possible abdominal etiology of bleeding. patient was seen, evaluated, and monitored over the weekend with significant improvement. feels well. no pain. no n/v/fc. tolerating diet. +BM / flatus Allergies: Coded Allergies: No Known Allergies (Unverified , 09/17/19) COVID-19 Screening Contact w/high risk pt: No Recent Travel to affected area: No Experienced COVID-19 symptoms?: No Medication History Scheduled Amlodipine Besylate (Norvasc), 5 MG ORAL DAILY, (Reported) Docusate Sodium* (Colace*), 100 MG ORAL TWICE A DAY Metoprolol Succinate* (Metoprolol Succinate*), 50 MG ORAL DAILY, (Reported) [Metoprolol Succinate XL], 50 MG ORAL DAILY Scheduled PRN Hydrocodone Bit/Acetaminophen 5-325* ([place] 5-325 Tablet*), 1 TAB ORAL Q4H PRN Discontinued Medications Amlodipine Besylate (Norvasc), 5 MG ORAL DAILY Discontinued Reason: Medication dose changed Tamsulosin HCl (Flomax), 0.4 MG ORAL BEDTIME Discontinued Reason: Pt stopped taking med Patient History History Provided By: Patient, Medical Record, PMD Healthcare decision maker Resuscitation status Advanced Directive on File Past Medical/Surgical History Past Medical/Surgical History: (1) Constipation (2) Urinary retention (3) Hematuria Review of Systems Review of Symptoms General ROS: no weight loss or fever Psychological ROS: no depression or mood changes, no memory loss Ophthalmic ROS: no visual changes or eye irritation ENT ROS: no nasal congestion, hearing loss, dizziness Allergy and Immunology ROS: no allergic symptoms or urticaria Hematological and Lymphatic ROS: no swollen glands, unusual bleeding or bruising Endocrine ROS: no polyuria, polydipsia, weight changes, temperature intolerance Respiratory ROS: no cough, shortness of breath, or wheezing Cardiovascular ROS: no chest pain or dyspnea on exertion Gastrointestinal ROS: denies abdominal pain, bright red blood in stool. Musculoskeletal ROS: no myalgias or arthralgias Neurological ROS: no TIA or stroke symptoms Dermatological ROS: no new or changing skin lesions, rashes or pruritis Physical Exam Physical Exam General appearance: alert, cooperative, no distress, appears stated age Head: Normocephalic, without obvious abnormality, atraumatic Eyes: conjunctivae/corneas clear. PERRL, EOM's intact. Fundi benign Throat: Lips, mucosa, and tongue normal. Teeth and gums normal Neck: supple, symmetrical, trachea midline, no adenopathy, thyroid: not enlarged, symmetric, no tenderness/mass/nodules, no carotid bruit and no JVD Lungs: clear to auscultation bilaterally Heart: regular rate and rhythm, S1, S2 normal, no murmur, click, rub or gallop Abdomen: soft, non-tender. Bowel sounds normal. No masses, no organomegaly Extremities: extremities normal, atraumatic, no cyanosis or edema Pulses: 2+ and symmetric Skin: Skin color, texture, turgor normal. No rashes or lesions Neurologic: Grossly normal Last 24 Hour Vital Signs Date Time Temp Pulse Resp B/P (MAP) Pulse Ox O2 Delivery O2 Flow Rate FiO2 10/08/19 09:10 97.6 10/08/19 09:00 Room Air 10/08/19 08:31 82 119/75 10/08/19 08:31 82 119/75 10/08/19 08:00 97.6 82 18 119/75 (90) 97 10/08/19 04:00 98.4 72 18 118/75 (89) 96 10/08/19 00:00 98.6 70 18 123/70 (87) 95 10/07/19 21:00 Room Air 10/07/19 20:00 98.0 70 18 125/79 (94) 96 10/07/19 16:00 98.0 64 18 123/75 (91) 96 Intake and Output 10/07/19 10/08/19 19:00 07:00 Intake Total 1300 ml 1200 ml Output Total 800 ml 900 ml Balance 500 ml 300 ml Intake Oral 1300 ml 1200 ml Output Urine Total 800 ml 900 ml # Bowel Movements 1 1 Laboratory Tests Test 10/08/19 04:00 White Blood Count 8.0 K/UL (4.8-10.8) Red Blood Count 4.81 M/UL (4.70-6.10) Hemoglobin 12.4 G/DL (14.2-18.0) L Hematocrit 40.0 % (42.0-52.0) L Mean Corpuscular Volume 83 FL (80-99) Mean Corpuscular Hemoglobin 25.7 PG (27.0-31.0) L Mean Corpuscular Hemoglobin Concent 30.9 G/DL (32.0-36.0) L Red Cell Distribution Width 14.0 % (11.6-14.8) Platelet Count 365 K/UL (150-450) Mean Platelet Volume 7.5 FL (6.5-10.1) Neutrophils (%) (Auto) 57.1 % (45.0-75.0) Lymphocytes (%) (Auto) 17.1 % (20.0-45.0) L Monocytes (%) (Auto) 7.4 % (1.0-10.0) Eosinophils (%) (Auto) 17.1 % (0.0-3.0) H Basophils (%) (Auto) 1.3 % (0.0-2.0) Sodium Level 142 MMOL/L (136-145) Potassium Level 3.7 MMOL/L (3.5-5.1) Chloride Level 105 MMOL/L (98-107) Carbon Dioxide Level 28 MMOL/L (21-32) Anion Gap 9 mmol/L (5-15) Blood Urea Nitrogen 13 mg/dL (7-18) Creatinine 1.2 MG/DL (0.55-1.30) Estimat Glomerular Filtration Rate > 60 mL/min (>60) Glucose Level 105 MG/DL (74-106) Calcium Level 8.1 MG/DL (8.5-10.1) L Height (Feet): 5 Height (Inches): 8.00 Weight (Pounds): 222 Medications Current Medications Medications (Trade) Dose Ordered Sig/Lita Route PRN Reason Start Time Stop Time Status Last Admin Dose Admin Acetaminophen (Tylenol) 650 mg Q4H PRN ORAL Temp >100.5 10/04/19 00:45 11/03/19 00:44 Amlodipine Besylate (Norvasc) 5 mg DAILY ORAL 10/07/19 09:00 11/03/19 08:59 10/08/19 08:31 Bisacodyl (Dulcolax) 5 mg BID ORAL 10/04/19 11:15 9/30/20 11:14 10/08/19 08:30 Bisacodyl (Dulcolax) 10 mg BID PRN RECTAL Constipation 10/04/19 11:15 01/02/20 11:14 Docusate Sodium (Colace) 100 mg TWICE A DAY ORAL 10/04/19 09:00 11/03/19 08:59 10/08/19 08:29 Hydromorphone HCl (Dilaudid) 1 mg Q4H PRN IVP For Pain 10/04/19 00:45 10/11/19 00:44 10/08/19 08:40 Levofloxacin 100 ml @ 100 mls/hr Q24H IVPB 10/04/19 02:00 10/11/19 01:59 10/08/19 02:00 Lorazepam (Ativan) 0.5 mg TIDPRN PRN ORAL ANXIETY AND INSOMNIA 10/04/19 18:15 10/11/19 18:14 10/07/19 21:58 Magnesium Hydroxide (Mom) 30 ml DAILYPRN PRN ORAL Constipation 10/04/19 11:15 11/03/19 11:14 10/06/19 04:01 Metoprolol Succinate (Toprol XL) 50 mg DAILY ORAL 10/07/19 09:00 01/02/20 08:59 10/08/19 08:31 Sodium Phosphate (Fleet's Sodium Phosl Enema) 133 ml DAILYPRN PRN RECTAL Constipation 10/04/19 11:15 11/03/19 11:14 Assessment/Plan Problem List: (1) Hematuria Assessment & Plan: started on CBI upon admission now improved with no clots just blood tinged but clearing up well abd exam benign unlikely abd etiology residual clots post op? now resolved cole out this AM monitor with d/c plan for tomorrow thank you ICD Codes: R31.9 - Hematuria, unspecified SNOMED: [id number] Qualifiers: Qualified Codes: R31.0 - Gross hematuria (2) Constipation Assessment & Plan: milk of mag okay for diet activity as tolerated hydration ICD Codes: K59.00 - Constipation, unspecified SNOMED: 62166960 Qualifiers: Qualified Codes: K59.03 - Drug induced constipation (3) Urinary retention ICD Codes: R33.9 - Retention of urine, unspecified SNOMED: [id number] Michael Beth Oct 08, 2019 12:03
--- NOTE | 2019-10-08 14:25 | NUR ---
CASE MANAGEMENT:REVIEW 10/08/2019 SI: HEMATURIA. S/P TURP 09/19/19 97.8 80 18 121/75 96% ON RA CA+8.1 IS: IV LEVAQUIN QD NORVASC PO QD TOPROL XL PO QD IV DILAUDID Q4HRS PRN \: MED/SURG STATUS 3 EAST DCP: PATIENT IS FROM HOME PLAN: AM LABS DC GALLEGOS MONITOR FOR HEMATURIA
[2019-10-08 16:00] VITALS: BP 125/78
--- NOTE | 2019-10-08 17:31 | NUR ---
NURSE NOTES: Four voids. first three voids clear yellow. one last urine was light pink with small amount sediments.
--- NOTE | 2019-10-08 19:40 | NUR ---
HAND-OFF: Report given to ED Freeman.
--- NOTE | 2019-10-08 19:41 | NUR ---
NURSE NOTES: Received report from Aleksandr WARD. Rounding is done. Patient is a/ox4. Denied any pain at this time. No distress noted at this time. IV site is intact and patent. Patient void with light pink with small amount sediments, 600 ml. Will continue to monitor. Bed is on alarm, locked, and lowest position. Call light within reach. Will continue to monitor.
[2019-10-08 20:00] VITALS: BP 121/80
[2019-10-08] MEDS: LORazepam 0.5mg tab ORAL PRN (23:23)
[2019-10-09] VITALS: BP 126/74
[2019-10-09 04:00] VITALS: BP 119/71
--- NOTE | 2019-10-09 06:37 | NUR ---
NURSE NOTES: Patient voided 3 times with Light yellow urine between 1999 to 0635; total output of urine is 2000 ml. Will continue to monitor.
--- NOTE | 2019-10-09 07:30 | NUR ---
NURSE NOTES: Received report from Lydia WARD. Patient is awake and oriented, in no apparent distress, reporting no pain, sitting at bedside eating breakfast. Patient reports he is having no difficulty voiding. IV intact and locked. Patient updated on plan of care for the day. Side rails upx2, bed low and locked, call light within reach.
--- NOTE | 2019-10-09 07:33 | NUR ---
HAND-OFF: Report given to Randi WARD. Patient is stable condition.
[2019-10-09 08:00] VITALS: BP 109/71
[2019-10-09 09:00] VITALS: BP 109/71
[2019-10-09] MEDS: Metoprolol Succinate XL 50mg tab ORAL SCH (09:00)
[2019-10-09] MEDS: Bisacodyl EC 5mg tab ORAL SCH (09:07)
[2019-10-09] MEDS: Docusate 100mg cap ORAL SCH (09:07)
--- NOTE | 2019-10-09 09:35 | NUR ---
NURSE NOTES: Seen and evaluated by and Patient cleared to discharge surgical standpoint. Order noted and carried out.
--- NOTE | 2019-10-09 09:51 | Pulmonology Progress Note ---
Subjective Interval Events: Seen by urology Constitutional: Reports: no symptoms HEENT: Repors: no symptoms Respiratory: Reports: no symptoms Cardiovascular: Reports: no symptoms Gastrointestinal/Abdominal: Reports: no symptoms Allergies: Coded Allergies: No Known Allergies (Unverified , 09/17/19) Objective Last 24 Hour Vital Signs Date Time Temp Pulse Resp B/P (MAP) Pulse Ox O2 Delivery O2 Flow Rate FiO2 10/09/19 09:00 76 109/71 10/09/19 09:00 76 109/71 10/09/19 08:00 97.6 76 16 109/71 (84) 95 10/09/19 04:00 98.0 71 18 119/71 (87) 96 10/09/19 00:00 98.0 76 18 126/74 (91) 96 10/08/19 21:00 Room Air 10/08/19 20:00 97.4 73 18 121/80 (94) 97 10/08/19 16:37 97.8 10/08/19 16:00 98.5 73 18 125/78 (94) 96 10/08/19 12:00 97.8 80 18 121/75 (90) 96 Intake and Output 10/08/19 10/09/19 19:00 07:00 Intake Total 2100 ml 1600 ml Output Total 1130 ml 2000 ml Balance 970 ml -400 ml Intake Oral 2100 ml 1500 ml IV Total 100 ml Output Urine Total 1130 ml 2000 ml # Bowel Movements 1 General Appearance: no acute distress HEENT: normocephalic Respiratory: chest wall non-tender, lungs clear Cardiovascular: normal peripheral pulses Abdomen: normal bowel sounds Current Medications Medications (Trade) Dose Ordered Sig/Lita Route PRN Reason Start Time Stop Time Status Last Admin Dose Admin Acetaminophen (Tylenol) 650 mg Q4H PRN ORAL Temp >100.5 10/04/19 00:45 11/03/19 00:44 Amlodipine Besylate (Norvasc) 5 mg DAILY ORAL 10/07/19 09:00 11/03/19 08:59 10/08/19 08:31 Bisacodyl (Dulcolax) 5 mg BID ORAL 10/04/19 11:15 01/02/20 11:14 10/09/19 09:07 Bisacodyl (Dulcolax) 10 mg BID PRN RECTAL Constipation 10/04/19 11:15 01/02/20 11:14 Docusate Sodium (Colace) 100 mg TWICE A DAY ORAL 10/04/19 09:00 11/03/19 08:59 10/09/19 09:07 Hydromorphone HCl (Dilaudid) 1 mg Q4H PRN IVP For Pain 10/04/19 00:45 10/11/19 00:44 10/08/19 16:07 Levofloxacin 100 ml @ 100 mls/hr Q24H IVPB 10/04/19 02:00 10/11/19 01:59 10/09/19 01:10 Lorazepam (Ativan) 0.5 mg TIDPRN PRN ORAL ANXIETY AND INSOMNIA 10/04/19 18:15 10/11/19 18:14 10/08/19 23:23 Magnesium Hydroxide (Mom) 30 ml DAILYPRN PRN ORAL Constipation 10/04/19 11:15 11/03/19 11:14 10/06/19 04:01 Metoprolol Succinate (Toprol XL) 50 mg DAILY ORAL 10/07/19 09:00 01/02/20 08:59 10/08/19 08:31 Sodium Phosphate (Fleet's Sodium Phosl Enema) 133 ml DAILYPRN PRN RECTAL Constipation 10/04/19 11:15 11/03/19 11:14 Assessment/Plan Assessment/Plan IMPRESSION: 1. Hematuria. Resolved 2. Status post transurethral resection of prostate. 3. Hypertension. DISCUSSION: Lorenza kent per urology Continue Norvasc. Continue Levaquin. Continue metoprolol. Pain control. I will follow. Dc home Vinnie Glover Omar Syed MD Oct 09, 2019 09:51
[2019-10-09] MEDS ORDERED: NORVASC5 MG ORAL (09:53)
[2019-10-09] MEDS ORDERED: METOPROLOL SUCC50 MG ORAL (09:53)
[2019-10-09] MEDS ORDERED: COLACE100 MG ORAL (09:53)
[2019-10-09] MEDS ORDERED: NORCO 5-325 TA1 EAC1 ORAL (09:53)
--- NOTE | 2019-10-09 10:18 | Surgery Progress Note ---
Surgery Progress Note Subjective Additional Comments no acute events comfortable stable urine without clots today seen myself hematuria resolved no n/v/f/c Objective Last 24 Hour Vital Signs Date Time Temp Pulse Resp B/P (MAP) Pulse Ox O2 Delivery O2 Flow Rate FiO2 10/09/19 09:00 76 109/71 10/09/19 09:00 76 109/71 10/09/19 08:00 97.6 76 16 109/71 (84) 95 10/09/19 04:00 98.0 71 18 119/71 (87) 96 10/09/19 00:00 98.0 76 18 126/74 (91) 96 10/08/19 21:00 Room Air 10/08/19 20:00 97.4 73 18 121/80 (94) 97 10/08/19 16:37 97.8 10/08/19 16:00 98.5 73 18 125/78 (94) 96 10/08/19 12:00 97.8 80 18 121/75 (90) 96 I&O Intake and Output 10/08/19 10/09/19 19:00 07:00 Intake Total 2100 ml 1600 ml Output Total 1130 ml 2000 ml Balance 970 ml -400 ml Intake Oral 2100 ml 1500 ml IV Total 100 ml Output Urine Total 1130 ml 2000 ml # Bowel Movements 1 Cardiovascular: RSR Respiratory: clear Abdomen: soft, flat, non-tender, present bowel sounds Extremities: no edema, no tenderness, no cyanosis Plan Problems: (1) Hematuria Assessment & Plan: started on CBI upon admission now improved with no clots just blood tinged but clearing up well abd exam benign unlikely abd etiology residual clots post op? now resolved cole out this AM monitor with d/c plan for tomorrow thank you (2) Constipation Assessment & Plan: milk of mag okay for diet activity as tolerated hydration (3) Urinary retention Additional Comments plan d/c home today outpatient follow up thank you Michael Beth Oct 09, 2019 10:18
--- NOTE | 2019-10-09 10:23 | NUR ---
*-* INSURANCE *-* UPDATED CLINICALS AND REVIEW HAVE BEEN FAXED TO: [facility] REF# [id number] UM NURSE:GLEN F: [phone]
--- NOTE | 2019-10-09 11:30 | NUR ---
NURSE NOTES: Patient discharged without distress at 1120. Patient provided with discharge education and verbalized understanding of discharge teaching. All belongings given to patient on discharge, Rx transmitted to patient's pharmacy of choice by Dr. Devries and patient aware. IV removed intact, ID band removed. Patient escorted to private vehicle.
--- NOTE | 2019-10-10 10:50 | NUR ---
*-* INSURANCE *-* NO D/C SUM IN THE SYSTEM UNABLE TO SEND TO INS CO. *-*
--- NOTE | 2019-10-11 15:40 | NUR ---
*-* INSURANCE *-* NO D/C SUM IN THE SYSTEM UNABLE TO SEND TO INS CO. *-*
--- NOTE | 2019-10-11 16:34 | Discharge Summary ---
Discharge Summary Discharge Summary _ DATE OF ADMISSION: 10/03/2019 DATE OF DISCHARGE: 10/09/2019 DISCHARGED BY: Dr. Devries REASON FOR ADMISSION: 59 years old male with past medical history of hypertension, who recently on underwent TURP and subsequently discharged, readmitted to ER for hematuria, stabilized and subsequently was discharged again. Patient completed antibiotics. Patient returned back to ED with hematuria and blood clots. Patient reported difficulty with urination and inability to pass urine. Patient also complained of constipation. Upon evaluation vital signs were stable. Urinalysis revealed +5 blood , no evidence of urinary tract infection. Laboratory work-up revealed no leukocytosis, hemoglobin 13.6 , hematocrit 42.5 , platelet count 335. Stable electrolytes. BUN 15, creatinine 1.3. Glucose 137. Stable LFT and lipase. In emergency department three-way Britt catheter was placed. Patient admitted for further management due to hematuria and urinary retention. CONSULTANTS: surgery Dr. Beth [facility]SE: Patient admitted to the hospital and started I&D IV fluids. Three-way continuous bladder irrigation initiated. Patient started on empiric antibiotics. Blood pressure was managed with calcium channel naun and beta-naun. Urologist consulted over the phone. General surgeon followed. With CBI, no blood clots, urine appeared to be blood-tinged , but was clearing up . Abdominal exam remained benign. Per surgeon, patient possibly had residual clots postoperatively , which resolved. Britt catheter was discontinued. Patient was able to void without difficulties. Renal parameters and electrolytes remained stable. Bowel regimen instituted. Empiric antibiotics provided. Patient was able to tolerate diet. Pain was controlled. Patient was able to urinate without difficulties. Patient ambulated. Patient clinically stabilized and was ready for discharge. Outpatient follow-up with primary care provider and urologist. . FINAL DIAGNOSES: Hematuria-resolved Status post recent TURP Urinary retention -resolved Constipation-resolved Hypertension DISCHARGE MEDICATIONS: See Medication Reconciliation list. DISCHARGE INSTRUCTIONS:. Patient was discharged home. Outpatient follow-up with a primary care provider and urologist. I have been assigned to dictate discharge summary for this account. I was not involved in the patient's management. Gayathri Boyer NP Oct 11, 2019 16:34
--- NOTE | 2019-10-12 10:36 | NUR ---
*-* INSURANCE *-* DISCHARGE SUMMARY HAS BEEN FAXED TO: [facility] REF# [id number] UM NURSE:GLEN F: [phone]
== END 2019-10-09 11:20 | disposition home or self-care (01) | DRG 700 ==
LOC: EMR 20:58 → 3E 22:02 → EDBEDREQ 22:34
DX: N99.89 Other postprocedural complications and disorders of genitourinary system (principal); R31.9 Hematuria, unspecified; Y83.8 Other surgical procedures as the cause of abnormal reaction of the patient, or of later complication, without mention of misadventure at the time of the procedure; R33.8 Other retention of urine; I10 Essential (primary) hypertension; K59.00 Constipation, unspecified
CPT/HCPCS: 36415; 80048; 80053; 81003; 83690; 85025; 85610; 85730; 86850; 86900; 86901; 87081; 96361; 96374; 96375; 99285; J2405; J7030

== ENCOUNTER 2019-10-13 16:20 | Emergency (ER) | payer BC ==
[~2019-10-13] VITALS: Ht 172.7 cm; Wt 100.7 kg
--- NOTE | 2019-10-13 16:40 | NUR ---
ED Nurse Note: Patient walked [facility] ED from home c/o blood clots upon urination that started 1 hour ago. Patient states he had a TURP on 09/19/2019. Patient AxOx 4, no s/s of acute distress. 18 g IV started in right AC, blood collected and sent to lab.
--- NOTE | 2019-10-13 16:50 | Emergency Room Report ---
History of Present Illness General Chief Complaint: Male Urogenital Problems Source: Patient Present Illness HPI The patient re-presents to the emergency department with hematuria. He was admitted with the same but had obstruction. He was admitted with an irrigating Britt. He has been taking a lot of pain medication and is been constipated also. He just saw a GI specialist who prescribed MiraLAX and a pill for the constipation. He states he is not been taking [place] but has it at home. He says that he has been having headaches with nausea along with leg cramps when he does not take [place]. He has been taking Tylenol. He denies significant pain at this time. He denies fevers or chills. He is able to pass urine and does not feel any obstruction at this time. He is concerned that there may be dietary factors that are causing the blood in his urine. He is not taking any blood thinners at this time. He denies dysuria. No sore throat, chest pain, palpitations, vomiting, diarrhea, dysuria, abdominal pain, shortness of breath, rashes, depression, visual changes, dizziness. Allergies: Coded Allergies: No Known Allergies (Unverified , 09/17/19) COVID-19 Screening Contact w/high risk pt: No Recent Travel to affected area: No Experienced COVID-19 symptoms?: No COVID-19 Testing performed SCANNING TECH: No Patient History Past Medical History: see triage record Social History: Denies: smoking Social History Narrative From home Reviewed Nursing Documentation: PMH: Agreed; PSxH: Agreed Nursing Documentation-PMH Hx Cardiac Problems: Yes - prostate surgery Hx Hypertension: Yes Hx Cancer: No Hx Gastrointestinal Problems: Yes Hx Neurological Problems: No Review of Systems All Other Systems: negative except mentioned in HPI Physical Exam Vital Signs Date Time Temp Pulse Resp B/P (MAP) Pulse Ox O2 Delivery O2 Flow Rate FiO2 10/13/19 16:26 98.2 83 17 142/92 (109) 97 Room Air Sp02 EP Interpretation: reviewed, normal General Appearance: well appearing, no apparent distress, GCS 15 Head: normocephalic Eyes: bilateral eye normal inspection, bilateral eye PERRL, bilateral eye EOMI ENT: moist mucus membranes Neck: supple Respiratory: lungs clear, normal breath sounds Cardiovascular #1: regular rate, rhythm Cardiovascular #2: 2+ radial (R) Gastrointestinal: normal inspection, normal bowel sounds, non tender, no mass, non-distended Genitourinary: penis normal Musculoskeletal: back normal, normal range of motion, gait/station normal Neurologic: alert, oriented x3, grossly normal Psychiatric: anxious Skin: no rash, warm/dry Medical Decision Making Diagnostic Impression: Primary Impression: Hematuria Qualified Codes: R31.9 - Hematuria, unspecified Additional Impression: Constipation Qualified Codes: K59.03 - Drug induced constipation ER Course Patient represents to the emergency department with passing clots and blood in his urine. He is status post TURP and also required readmission to the hospital with an irrigating Britt last week. Differential includes post TUR bleeding, urinary tract infection, bladder outlet obstruction amongst others. He is still able to pass urine at this time. Evaluation will be with labs and a abdominal flatplate. The patient will be treated with gentle IV hydration and ondansetron. He is not complaining about pain at this time. Labs are remarkable for too numerous to count red cells without pyuria in the urine. Normal white count with minimally decreased hemoglobin and hematocrit. Coagulation studies normal. Abdomen film with paucity of gas in increased stool load no obstruction. Patient passing urine that is clearing. Discussed results with patient and the possible etiology of straining causing increased bleeding. Discussed the contribution of constipation and the focus of the treatment plan from the emergency department. Patient stable for outpatient observation and treatment. After the patient was discharged a call was returned from his urologist. Urologist agreed with the patient's treatment plan. Laboratory Tests Test 10/13/19 16:25 10/13/19 17:15 White Blood Count 6.3 K/UL (4.8-10.8) Red Blood Count 4.64 M/UL (4.70-6.10) L Hemoglobin 12.1 G/DL (14.2-18.0) L Hematocrit 37.4 % (42.0-52.0) L Mean Corpuscular Volume 81 FL (80-99) Mean Corpuscular Hemoglobin 26.1 PG (27.0-31.0) L Mean Corpuscular Hemoglobin Concent 32.3 G/DL (32.0-36.0) Red Cell Distribution Width 13.7 % (11.6-14.8) Platelet Count 442 K/UL (150-450) Mean Platelet Volume 6.6 FL (6.5-10.1) Neutrophils (%) (Auto) 50.6 % (45.0-75.0) Lymphocytes (%) (Auto) 22.3 % (20.0-45.0) Monocytes (%) (Auto) 8.7 % (1.0-10.0) Eosinophils (%) (Auto) 16.8 % (0.0-3.0) H Basophils (%) (Auto) 1.6 % (0.0-2.0) Prothrombin Time 11.2 SEC (9.30-11.50) Prothrombin Time INR 1.0 (0.9-1.1) Activated Partial Thromboplast Time 25 SEC (23-33) Sodium Level 143 MMOL/L (136-145) Potassium Level 3.7 MMOL/L (3.5-5.1) Chloride Level 106 MMOL/L (98-107) Carbon Dioxide Level 27 MMOL/L (21-32) Anion Gap 10 mmol/L (5-15) Blood Urea Nitrogen 20 mg/dL (7-18) H Creatinine 1.4 MG/DL (0.55-1.30) H Estimated Glomerular Filtration Rate 51.7 mL/min (>60) Glucose Level 133 MG/DL (74-106) H Calcium Level 7.9 MG/DL (8.5-10.1) L Total Bilirubin 0.2 MG/DL (0.2-1.0) Aspartate Amino Transferase (AST) 16 U/L (15-37) Alanine Aminotransferase (ALT) 19 U/L (12-78) Alkaline Phosphatase 102 U/L (46-116) Total Protein 7.4 G/DL (6.4-8.2) Albumin 3.8 G/DL (3.4-5.0) Globulin 3.6 g/dL Albumin/Globulin Ratio 1.1 (1.0-2.7) Lipase 182 U/L (73-393) Urine Color Red Urine Appearance Very cloudy Urine pH 6 (4.5-8.0) Urine Specific [place] 1.020 (1.005-1.035) Urine Protein 3+ (NEGATIVE) H Urine Glucose (UA) Negative (NEGATIVE) Urine Ketones 1+ (NEGATIVE) H Urine Blood 5+ (NEGATIVE) H Urine Nitrite Negative (NEGATIVE) Urine Bilirubin Negative (NEGATIVE) Urine Urobilinogen Normal MG/DL (0.0-1.0) Urine Leukocyte Esterase 2+ (NEGATIVE) H Urine RBC Tntc /HPF (0 - 0) H Urine WBC 2-4 /HPF (0 - 0) Urine Squamous Epithelial Cells None /LPF (NONE/OCC) Urine Bacteria Many /HPF (NONE) H Rhythm Strip Diag. Results EP Interpretation: yes Rhythm: NSR, no PVC's, no ectopy Other X-Ray Diagnostic Results Other X-Ray Diagnostic Results : X-Ray ordered: abd # of Views/Limited Vs Complete: 2 View Indication: Other EP Interpretation: Yes Interpretation: nonspecific bowel gas, no sbo, other - inc stool Impression: Other Electronically Signed by: Electronically signed by Maged Cabello MD Last Vital Signs Date Time Temp Pulse Resp B/P (MAP) Pulse Ox O2 Delivery O2 Flow Rate FiO2 10/13/19 18:40 98.1 76 18 141/89 100 Room Air Status: improved Disposition: HOME, SELF-CARE Condition: Improved Scripts Ondansetron Odt* (ZOFRAN ODT*) 4 Mg Tab.rapdis 4 MG BC EVERY 8 HOURS, #10 TAB 0 Refills Prov: Maged Cabello MD 10/13/19 Lactulose (LACTULOSE*) 20 Gm/30 Ml Solution 30 ML ORAL BID PRN for constipation, #240 ML 0 Refills Prov: Maged Cabello MD 10/13/19 Maged Cabello MD Oct 13, 2019 16:50
--- NOTE | 2019-10-13 16:50 | NUR ---
ED Nurse Note: Xray at bedside.
[2019-10-13 16:54] VITALS: BP 142/92
[2019-10-13 17:16] LABS: BASOPHILS % (AUTO) 1.6 % (0.0-2.0); EOSINOPHILS % (AUTO) 16.8 % (0.0-3.0); HEMATOCRIT 37.4 % (42.0-52.0); HEMOGLOBIN 12.1 G/DL (14.2-18.0); LYMPHOCYTES % (AUTO) 22.3 % (20.0-45.0); MEAN CORPUSCULAR VOLUME 81 FL (80-99); MONOCYTES % (AUTO) 8.7 % (1.0-10.0); NEUTROPHILS % (AUTO) 50.6 % (45.0-75.0); PLATELET COUNT 442 K/UL (150-450); RED BLOOD COUNT 4.64 M/UL (4.70-6.10); RED CELL DISTRIBUTION WIDTH 13.7 % (11.6-14.8); WHITE BLOOD COUNT 6.3 K/UL (4.8-10.8)
--- NOTE | 2019-10-13 17:19 | Diagnostic Imaging Report ---
EXAM: XR Abdomen, 2 Views CLINICAL HISTORY: BLD TECHNIQUE: Frontal view of the abdomen/pelvis with upright view of the abdomen. COMPARISON: No relevant prior studies available. FINDINGS: Intraperitoneal space: No free air. Gastrointestinal tract: Unremarkable. Bones/joints: Unremarkable. IMPRESSION: Normal abdominal x-rays.
[2019-10-13 17:21] LABS: ANION GAP 10 mmol/L (5-15); BLOOD UREA NITROGEN 20 mg/dL (7-18); CALCIUM 7.9 MG/DL (8.5-10.1); CARBON DIOXIDE 27 MMOL/L (21-32); CHLORIDE 106 MMOL/L (98-107); CREATININE 1.4 MG/DL (0.55-1.30); POTASSIUM 3.7 MMOL/L (3.5-5.1); SODIUM 143 MMOL/L (136-145)
[2019-10-13 17:24] LABS: ALANINE AMINOTRANSFERASE 19 U/L (12-78); ALBUMIN 3.8 G/DL (3.4-5.0); ALBUMIN/GLOBULIN RATIO 1.1 (1.0-2.7); ALKALINE PHOSPHATASE 102 U/L (46-116); ASPARTATE AMINO TRANSFERASE 16 U/L (15-37); BILIRUBIN,TOTAL 0.2 MG/DL (0.2-1.0)
[2019-10-13 17:33] LABS: APPEARANCE,URINE VERY CLOUDY; BILIRUBIN, URINE NEGATIVE (NEGATIVE); GLUCOSE, URINE (UA) NEGATIVE (NEGATIVE); KETONES,URINE 1+ (NEGATIVE); LEUKOCYTE ESTERASE ,URINE 2+ (NEGATIVE); NITRITE,URINE NEGATIVE (NEGATIVE); PH,URINE 6 (4.5-8.0); PROTEIN,URINE 3+ (NEGATIVE); UROBILINOGEN,URINE NORMAL MG/DL (0.0-1.0)
[2019-10-13 17:37] LABS: COLOR,URINE RED
[2019-10-13] MEDS ORDERED: LACTULOSE20 GM/301 ORAL (18:34)
[2019-10-13] MEDS ORDERED: ONDANSETRON ODT4 MG BC (18:34)
[2019-10-13 18:40] VITALS: BP 141/89
== END 2019-10-13 18:40 | disposition home or self-care (01) ==
LOC: EMR 16:45
DX: R31.9 Hematuria, unspecified (principal); K59.03 Drug induced constipation; I10 Essential (primary) hypertension
CPT/HCPCS: 36415; 74018; 80053; 81003; 83690; 85025; 85610; 85730; 86850; 86900; 86901; 87086; 96361; 96374; 99284; J2405; J7030